=== PATIENT | male | born 1965 | race Caucasian/White ===

== ENCOUNTER 2021-04-20 16:23 | Inpatient (IN) | payer OTHER ==
[2021-04-20] MEDS ORDERED: SODIUM CHLORIDE 0.9% 1,000 ML IV STA (16:48)
[2021-04-20 17:03] LABS: Basophils # (A) 0.1 k/uL (0-0.2); Basophils % (A) 1 %; Eosinophils # (A) 0.3 k/uL (0-0.7); Eosinophils % (A) 2 %; HCT 49.5 % (39.0-53.0); HGB 16.5 gm/dL (13.0-17.5); Lymphocytes # (A) 3.6 k/uL (1.0-4.8); Lymphocytes % (A) 33 %; MCH 31.5 pg (25.0-35.0); MCHC 33.3 g/dL (31.0-37.0); MCV 94.5 fL (80.0-100.0); Mean Platelet Volume 7.6; Monocytes # (A) 0.7 k/uL (0-1.0); Monocytes % (A) 7 %; Neutrophils # (A) 6.1 k/uL (1.3-7.7); Neutrophils % (A) 55 %; Platelet Count 297 k/uL (150-450); RBC 5.24 m/uL (4.30-5.90); RDW 13.2 % (11.5-15.5); WBC 10.9 k/uL (3.8-10.6)
[2021-04-20 17:07] LABS: Appearance,Urine Clear (Clear); Bilirubin,Urine Negative (Negative); Blood,Urine Negative (Negative); Color,Urine Light Yellow; Glucose,Urine (UA) Negative (Negative); Ketones,Urine Negative (Negative); Leukocyte Esterase,Urine Negative (Negative); Nitrite,Urine Negative (Negative); PH, Urine 6.5 (5.0-8.0); Protein,Urine Negative (Negative); Specific Gravity,Urine 1.003 (1.001-1.035); Urobilinogen,Urine <2.0 mg/dL (<2.0)
[2021-04-20 17:11] LABS: INR 0.9 (<1.2); Partial Thromboplastin Time 24.1 sec (22.0-30.0); Prothrombin Time 9.7 sec (9.0-12.0)
[2021-04-20 17:14] LABS: AST 31 U/L (17-59); African American GFR (CKD) >90 (>60 ml/min/1.73 sqM); Albumin 4.6 g/dL (3.5-5.0); Alkaline Phosphatase 62 U/L (38-126); Amylase 69 U/L (30-110); Anion Gap 11 mmol/L; Blood Urea Nitrogen 15 mg/dL (9-20); Calcium 9.7 mg/dL (8.4-10.2); Carbon Dioxide 28 mmol/L (22-30); Chloride 101 mmol/L (98-107); Glucose 105 mg/dL (74-99); Lipase 55 U/L (23-300); Non-African American GFR(CKD) >90 (>60 ml/min/1.73 sqM); Potassium 3.8 mmol/L (3.5-5.1); Sodium 140 mmol/L (137-145); Total Bilirubin 0.4 mg/dL (0.2-1.3); Total Protein 7.3 g/dL (6.3-8.2)
[2021-04-20 17:15] LABS: ALT 38 U/L (4-49); Magnesium 2.1 mg/dL (1.6-2.3)
--- NOTE | 2021-04-20 17:23 | XR ---
EXAMINATION TYPE: XR chest 2V DATE OF EXAM: 04/20/2021 COMPARISON: 11/18/2020 HISTORY: Chest pain TECHNIQUE: 2 views FINDINGS: Heart and mediastinum are normal. Lungs are clear. Diaphragm is normal. There are emphysema tous changes in the right upper lobe. There are chest leads. Bony thorax is intact. IMPRESSION: Bullous pulmonary emphysema. No acute lung disease. No adverse change compared to old exa m.
[2021-04-20] MEDS ORDERED: HEPARIN SODIUM 1,000 UN/ML (10ML VL) IV ONE (17:42)
--- NOTE | 2021-04-20 17:58 | ED ---
General Adult HPI - General Chief complaint: Recheck/Abnormal Lab/Rx Stated complaint: abnormal EKG Time Seen by Provider: 04/20/21 16:36 Source: patient, RN notes reviewed Mode of arrival: ambulatory Limitations: no limitations - History of Present Illness Initial comments: Patient is a 55-year-old male that presents to emergency department complaining of chest pain on Sunday with radiation to his left arm. He presents today for evaluation and cardiac workup. Patient is an inmate at the local facility. He noted that he was feeling fine all sitting up in bed. He denied any cardiac history such as CHF, heart attack, stroke. He denied any family history of cardiac issues. He was a well-appearing well-hydrated 55-year-old male in no apparent distress or pain. He noted that he has not had a evaluation done. He denied any chest pain shortness of breath headache nausea vomiting diarrhea constipation fever fatigue chills. - Related Data Home Medications Medication Instructions Recorded Confirmed Albuterol Inhaler [Ventolin Hfa 2 puff INHALATION RT-QID PRN 04/20/21 04/20/21 Inhaler] Albuterol Nebulized [Ventolin 2.5 mg INHALATION RT-QID PRN 04/20/21 04/20/21 Nebulized] Atenolol [Tenormin] 50 mg PO DAILY 04/20/21 04/20/21 Ciclesonide [Alvesco] 1 puff INHALATION RT-BID 04/20/21 04/20/21 Loratadine 10 mg PO DAILY 04/20/21 04/20/21 Omeprazole [PriLOSEC] 20 mg PO DAILY 04/20/21 04/20/21 amLODIPine [Norvasc] 10 mg PO DAILY 04/20/21 04/20/21 hydroCHLOROthiazide [Hydrodiuril] 25 mg PO DAILY 04/20/21 04/20/21 Allergies Allergy/AdvReac Type Severity Reaction Status Date / Time No Known Allergies Allergy Verified 04/20/21 17:55 Review of Systems ROS Statement: Those systems with pertinent positive or pertinent negative responses have been documented in the HPI. ROS Other: All systems not noted in ROS Statement are negative. Past Medical History Past Medical History: COPD, Hypertension History of Any Multi-Drug Resistant Organisms: None Reported Past Surgical History: Hernia Repair Additional Past Surgical History / Comment(s): left foot, left thumb amputation Past Psychological History: Anxiety, Bipolar Smoking Status: Current some day smoker Past Alcohol Use History: Rare Past Drug Use History: None Reported General Exam Limitations: no limitations General appearance: alert, in no apparent distress Head exam: Present: atraumatic, normocephalic, normal inspection Eye exam: Present: normal appearance, PERRL, EOMI. Absent: scleral icterus, conjunctival injection, periorbital swelling Neck exam: Present: normal inspection Respiratory exam: Present: normal lung sounds bilaterally. Absent: respiratory distress, wheezes, rales, rhonchi, stridor Cardiovascular Exam: Present: regular rate, normal rhythm, normal heart sounds. Absent: systolic murmur, diastolic murmur, rubs, gallop, clicks GI/Abdominal exam: Present: soft, normal bowel sounds. Absent: distended, tenderness, guarding, rebound, rigid Extremities exam: Present: normal inspection, full ROM, normal capillary refill. Absent: tenderness, pedal edema, joint swelling, calf tenderness Neurological exam: Present: alert, oriented X3 Psychiatric exam: Present: normal affect, normal mood Skin exam: Present: warm, dry, intact, normal color. Absent: rash Course Vital Signs 04/20/21 16:26 Temperature 98.0 F Pulse Rate 102 H Respiratory 20 Rate Blood Pressure 149/99 O2 Sat by Pulse 98 Oximetry EKG Findings - EKG Comments: EKG Findings:: Ventricular rate 111 bpm, QRS duration 92 ms, QTC 484 ms, PRT axes */49/-88, atrial fibrillation with rapid ventricular response, septal infarct, age undetermined, abnormal ECG. Medical Decision Making - Medical Decision Making 55-year-old male presenting for cardiac evaluation after having chest pain with radiation of left arm on Sunday. Labs, chest x-ray, 1 L normal saline, EKG, machine rug cleaner ordered. EKG shows atrial fibrillation with rapid ventricular response, no previous EKG on record. Labs unremarkable. Chest x-ray negative for any acute change Case discussed with Dr. Neves, patient will be admitted inpatient for irregular EKG. Dr. Rodas was consulted and will accept the admit. Patient was started on a heparin drip and serial troponins were ordered. - Lab Data Result diagrams: 04/20/21 16:51 04/20/21 16:51 Lab Results 04/20/21 04/20/21 04/20/21 Range/Units 16:51 16:51 16:51 WBC 10.9 H (3.8-10.6) k/uL RBC 5.24 (4.30-5.90) m/uL Hgb 16.5 (13.0-17.5) gm/dL Hct 49.5 (39.0-53.0) % MCV 94.5 (80.0-100.0) fL MCH 31.5 (25.0-35.0) pg MCHC 33.3 (31.0-37.0) g/dL RDW 13.2 (11.5-15.5) % Plt Count 297 (150-450) k/uL MPV 7.6 Neutrophils % 55 % Lymphocytes % 33 % Monocytes % 7 % Eosinophils % 2 % Basophils % 1 % Neutrophils # 6.1 (1.3-7.7) k/uL Lymphocytes # 3.6 (1.0-4.8) k/uL Monocytes # 0.7 (0-1.0) k/uL Eosinophils # 0.3 (0-0.7) k/uL Basophils # 0.1 (0-0.2) k/uL PT 9.7 (9.0-12.0) sec INR 0.9 (<1.2) APTT 24.1 (22.0-30.0) sec Sodium 140 (137-145) mmol/L Potassium 3.8 (3.5-5.1) mmol/L Chloride 101 (98-107) mmol/L Carbon Dioxide 28 (22-30) mmol/L Anion Gap 11 mmol/L BUN 15 (9-20) mg/dL Creatinine 0.86 (0.66-1.25) mg/dL Est GFR (CKD-EPI)AfAm >90 (>60 ml/min/1.73 sqM) Est GFR (CKD-EPI)NonAf >90 (>60 ml/min/1.73 sqM) Glucose 105 H (74-99) mg/dL Calcium 9.7 (8.4-10.2) mg/dL Magnesium 2.1 (1.6-2.3) mg/dL Total Bilirubin 0.4 (0.2-1.3) mg/dL AST 31 (17-59) U/L ALT 38 (4-49) U/L Alkaline Phosphatase 62 (38-126) U/L Troponin I (0.000-0.034) ng/mL Total Protein 7.3 (6.3-8.2) g/dL Albumin 4.6 (3.5-5.0) g/dL Amylase 69 (30-110) U/L Lipase 55 (23-300) U/L Urine Color Urine Appearance (Clear) Urine pH (5.0-8.0) Ur Specific Crete (1.001-1.035) Urine Protein (Negative) Urine Glucose (UA) (Negative) Urine Ketones (Negative) Urine Blood (Negative) Urine Nitrite (Negative) Urine Bilirubin (Negative) Urine Urobilinogen (<2.0) mg/dL Ur Leukocyte Esterase (Negative) 04/20/21 04/20/21 Range/Units 16:51 16:51 WBC (3.8-10.6) k/uL RBC (4.30-5.90) m/uL Hgb (13.0-17.5) gm/dL Hct (39.0-53.0) % MCV (80.0-100.0) fL MCH (25.0-35.0) pg MCHC (31.0-37.0) g/dL RDW (11.5-15.5) % Plt Count (150-450) k/uL MPV Neutrophils % % Lymphocytes % % Monocytes % % Eosinophils % % Basophils % % Neutrophils # (1.3-7.7) k/uL Lymphocytes # (1.0-4.8) k/uL Monocytes # (0-1.0) k/uL Eosinophils # (0-0.7) k/uL Basophils # (0-0.2) k/uL PT (9.0-12.0) sec INR (<1.2) APTT (22.0-30.0) sec Sodium (137-145) mmol/L Potassium (3.5-5.1) mmol/L Chloride (98-107) mmol/L Carbon Dioxide (22-30) mmol/L Anion Gap mmol/L BUN (9-20) mg/dL Creatinine (0.66-1.25) mg/dL Est GFR (CKD-EPI)AfAm (>60 ml/min/1.73 sqM) Est GFR (CKD-EPI)NonAf (>60 ml/min/1.73 sqM) Glucose (74-99) mg/dL Calcium (8.4-10.2) mg/dL Magnesium (1.6-2.3) mg/dL Total Bilirubin (0.2-1.3) mg/dL AST (17-59) U/L ALT (4-49) U/L Alkaline Phosphatase (38-126) U/L Troponin I <0.012 (0.000-0.034) ng/mL Total Protein (6.3-8.2) g/dL Albumin (3.5-5.0) g/dL Amylase (30-110) U/L Lipase (23-300) U/L Urine Color Light Yellow Urine Appearance Clear (Clear) Urine pH 6.5 (5.0-8.0) Ur Specific Crete 1.003 (1.001-1.035) Urine Protein Negative (Negative) Urine Glucose (UA) Negative (Negative) Urine Ketones Negative (Negative) Urine Blood Negative (Negative) Urine Nitrite Negative (Negative) Urine Bilirubin Negative (Negative) Urine Urobilinogen <2.0 (<2.0) mg/dL Ur Leukocyte Esterase Negative (Negative) - EKG Data -: EKG Interpreted by Ms EKG Comments: Ventricular rate 111 bpm, QRS duration 92 ms, QTC 484 ms, PRT axes */49/-88, atrial fibrillation with rapid ventricular response, septal infarct, age undetermined, abnormal ECG. - Radiology Data Radiology results: report reviewed, image reviewed Chest x-ray: A bolus pulmonary emphysema. No acute lung disease. No adverse change compared to old exam. Disposition Clinical Impression: Atrial fibrillation, Chest pain Disposition: ADMITTED IP TO THIS HOSP Condition: Stable Is patient prescribed a controlled substance at d/c from ED?: No Referrals: Do Harrington MD [Primary Care Provider] - 1-2 days Time of Disposition: 18:04
[2021-04-20] MEDS: HEPARIN SOD,PORK IN 0.45% NACL 25,000 UNIT in 0.45% NACL 1 250ML.BAG IV SCH (18:04)
[2021-04-20] MEDS ORDERED: NITROGLYCERIN SL TABS 0.4 MG TAB SUBLINGUAL PRN (18:05)
[2021-04-20 19:41] LABS: Partial Thromboplastin Time 63.1 sec (22.0-30.0); Prothrombin Time 10.5 sec (9.0-12.0)
[2021-04-21] MEDS: HEPARIN SODIUM 1,000 UN/ML (10ML VL) IV PRN (01:34)
[2021-04-21 06:13] LABS: Partial Thromboplastin Time 69.8 sec (22.0-30.0); Prothrombin Time 10.4 sec (9.0-12.0)
[2021-04-21] MEDS ORDERED: CAFFEINE CITRATE 60 MG/3 ML VIAL IV PRN (08:01)
[2021-04-21] MEDS ORDERED: AMINOPHYLLINE 500 MG/20 ML VIAL IV PRN (08:01)
[2021-04-21] MEDS ORDERED: REGADENOSON 0.4 MG/5 ML SYRINGE IV PRN (08:01)
[2021-04-21] MEDS ORDERED: ASPIRIN 325 MG TAB PO SCH (09:00)
[2021-04-21 09:22] LABS: Basophils # (A) 0.09 X 10*3/uL (0.00-0.10); Basophils % (A) 0.8 %; Eosinophils # (A) 0.27 X 10*3/uL (0.04-0.35); Eosinophils % (A) 2.4 %; HCT 47.9 % (39.6-50.0); HGB 16.5 g/dL (13.0-17.0); Lymphocytes # (A) 3.88 X 10*3/uL (0.90-5.00); MCH 31.9 pg (27.0-32.0); MCHC 34.4 g/dL (32.0-37.0); MCV 92.5 fL (80.0-97.0); Mean Platelet Volume 10.8 fL (9.5-12.2); Monocytes # (A) 0.92 X 10*3/uL (0.20-1.00); Monocytes % (A) 8.3 %; Neutrophils # (A) 5.84 X 10*3/uL (1.80-7.70); Neutrophils % (A) 52.6 %; Platelet Count 255 X 10*3/uL (140-440); RBC 5.18 X 10*6/uL (4.40-5.60); RDW 12.8 % (11.5-14.5)
[2021-04-21] MEDS ORDERED: amLODIPine 10 MG TAB PO SCH (09:30)
[2021-04-21] MEDS ORDERED: atenoloL 50 MG TAB PO SCH (09:30)
--- NOTE | 2021-04-21 09:31 | P.CRDCN ---
History of Present Illness History of present illness: HISTORY OF PRESENTING ILLNESS This is a pleasant 55-year-old male past medical history significant for hypertension, dyslipidemia, gastroesophageal reflux disease, nonobstructive coronary artery disease per cath 2011 with a 30% lesion in the mid RCA, former nicotine dependency quit smoking March 04, former alcohol and marijuana use. He is currently incarcerated and therefore is no longer smoking cigarettes, marijuana or drinking alcohol. 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 We have been asked to see in consultation for chest pain. He states on Sunday he was sitting down on his bunk watching television when he had an acute onset of sharp pain in the left precordial region associated with shortness of breath and dizziness. He went and saw the nurse. His pain lasted for approximately 3 minutes and subsided on its own. [facility] Then yesterday during a routine blood draw to check his thyroid he was again evaluated by the nurse and was noted to have an irregular heartbeat. He went for an EKG and was sent to the hospital for further evaluation. EKG on arrival here showed atrial fibrillation heart rate of 111 with poor R-wave progression and nonspecific ST and T-wave abnormalities. Telemetry tracings reveal persistent atrial fibrillation with variable ventricular rates. Chest x-ray reveals pulmonary emphysema with no acute cardiopulmonary process. Laboratory data reviewed, WBC 10.9, hemoglobin 16.5, platelets 297, sodium 140, potassium 3.8, creatinine 0.86, magnesium 2.1 and cardiac enzymes negative 3. Current daily cardiac medications include atenolol 50 mg daily, hydrochlorothiazide 25 mg daily and amlodipine 10 mg daily. Most recent echocardiogram obtained in 2012 revealed preserved LV systolic function with ejection fraction 50%, trace aortic regurgitation noted, mild mitral regurgitation and mild tricuspid regurgitation. Cardiac catheterization report reviewed from [facility] from 2011 revealing left main angiographically normal, LAD mild luminal irregularities with no significant stenosis, ramus free of significant stenosis, circumflex free of significant stenosis and dominant RCA with a mid lesion of 30%. The patient is currently chest pain-free and has no symptoms of palpitations or dizziness. REVIEW OF SYSTEMS At the time of my exam: CONSTITUTIONAL: Denies fever or chills. CARDIOVASCULAR: Denies chest pain, shortness of breath, orthopnea, PND or palpi tations. RESPIRATORY: Denies cough. GASTROINTESTINAL: Denies abdominal pain, diarrhea, constipation, nausea or vomiting. MUSCULOSKELETAL: Denies myalgias. NEUROLOGIC: Denies numbness, tingling, headacbe or weakness. ENDOCRINE: Denies fatigue, weight change, polydipsia or polyurina. GENITOURINARY: Denies burning, hematuria or urgency with micturation. HEMATOLOGIC: Denies history of anemia or bleeding. PHYSICAL EXAMINATION Blood pressure 132/99 heart rate 74 afebrile and maintaining oxygen saturation on room air. CONSTITUTIONAL: No apparent distress. HEENT: Head is normocephalic. Pupils are equal, round. Sclerae anicteric. Mucous membranes of the mouth are moist. No JVD. No carotid bruit. CHEST EXAMINATION: Lungs are clear to auscultation. No chest wall tenderness is noted on palpation or with deep breathing. HEART EXAMINATION: Irregular rate and rhythm. S1, S2 heard. No murmurs, gallops or rub. ABDOMEN: Soft, nontender. Positive bowel sounds. EXTREMITIES: 2+ peripheral pulses, no lower extremity edema and no calf tenderness. NEUROLOGIC EXAMINATION: Patient is awake, alert and oriented x3. ASSESSMENT New onset paroxysmal atrial fibrillation with variable ventricular rates Chest pain Hypertension Dyslipidemia GERD COPD Chronic nicotine dependence PLAN An acute coronary event has been ruled out. Obtain 2D echocardiogram and doppler study to assess cardiac structure and f unction. Perform Lexiscan stress test to assess for reversible ischemia. Continue IV heparin for thromboembolic protection pending stress test findings. In the meantime we will ask the therapeutic case manager to check the cost of xarelto 20 mg daily. Resume atenolol, hydrochlorothiazide and amlodipine as previously ordered. Check thyroid function and lipid panel. CHADS-VASC score is 1. Consider DESIREE/cardioversion down the road if he remains in afib. Further recommendations to follow based on clinical course. Thank you kindly for this consultation. Nurse Practitioner note has been reviewed, I agree with a documented findings and plan of care. Patient was seen and examined. Past Medical History Past Medical History: COPD, Hypertension History of Any Multi-Drug Resistant Organisms: None Reported Past Surgical History: Hernia Repair Additional Past Surgical History / Comment(s): left foot, left thumb amputation Past Anesthesia/Blood Transfusion Reactions: No Reported Reaction Past Psychological History: Anxiety, Bipolar Smoking Status: Former smoker Past Alcohol Use History: Rare Past Drug Use History: None Reported Medications and Allergies Home Medications Medication Instructions Recorded Confirmed Type Albuterol Inhaler [Ventolin Hfa 2 puff INHALATION RT-QID PRN 04/20/21 04/20/21 History Inhaler] Albuterol Nebulized [Ventolin 2.5 mg INHALATION RT-QID PRN 04/20/21 04/20/21 History Nebulized] Atenolol [Tenormin] 50 mg PO DAILY 04/20/21 04/20/21 History Ciclesonide [Alvesco] 1 puff INHALATION RT-BID 04/20/21 04/20/21 History Loratadine 10 mg PO DAILY 04/20/21 04/20/21 History Omeprazole [PriLOSEC] 20 mg PO DAILY 04/20/21 04/20/21 History amLODIPine [Norvasc] 10 mg PO DAILY 04/20/21 04/20/21 History hydroCHLOROthiazide [Hydrodiuril] 25 mg PO DAILY 04/20/21 04/20/21 History Allergies Allergy/AdvReac Type Severity Reaction Status Date / Time No Known Allergies Allergy Verified 04/20/21 17:55 Physical Exam Vitals: Vital Signs Temp Pulse Pulse Resp BP BP Pulse Ox 04/21/21 02:00 98.2 F 65 18 134/92 97 04/20/21 19:37 98.3 F 84 18 142/109 98 04/20/21 18:09 98 18 138/107 99 04/20/21 16:26 98.0 F 102 H 20 149/99 98 Intake and Output 04/20/21 04/21/21 04/21/21 22:59 06:59 14:59 Intake Total 72.829 70.244 Balance 72.829 70.244 Intake: Intake, IV Titration 72.829 70.244 Amount Heparin Sod,Pork in 0.45% 72.829 70.244 NaCl 25,000 unit In 0.45 % NaCl 1 250ml.bag @ 12 UNITS/KG/HR 9.689 mls/hr IV .Q24H [facility] Rx#: [id number] Other: Voiding Method Toilet Toilet # Voids 1 3 Weight 80.739 kg Results 04/20/21 16:51 04/20/21 16:51 Cardiac Enzymes 04/20/21 04/20/21 04/20/21 Range/Units 16:51 16:51 19:07 AST 31 (17-59) U/L Troponin I <0.012 <0.012 (0.000-0.034) ng/mL 04/20/21 Range/Units 20:51 AST (17-59) U/L Troponin I <0.012 (0.000-0.034) ng/mL Coagulation 04/20/21 04/20/21 04/21/21 Range/Units 16:51 19:07 00:42 PT 9.7 10.5 (9.0-12.0) sec APTT 24.1 63.1 H 34.8 H (22.0-30.0) sec 04/21/21 Range/Units 05:03 PT 10.4 (9.0-12.0) sec APTT 69.8 H (22.0-30.0) sec CBC 04/20/21 Range/Units 16:51 WBC 10.9 H (3.8-10.6) k/uL RBC 5.24 (4.30-5.90) m/uL Hgb 16.5 (13.0-17.5) gm/dL Hct 49.5 (39.0-53.0) % Plt Count 297 (150-450) k/uL Comprehensive Metabolic Panel 04/20/21 Range/Units 16:51 Sodium 140 (137-145) mmol/L Potassium 3.8 (3.5-5.1) mmol/L Chloride 101 (98-107) mmol/L Carbon Dioxide 28 (22-30) mmol/L BUN 15 (9-20) mg/dL Creatinine 0.86 (0.66-1.25) mg/dL Glucose 105 H (74-99) mg/dL Calcium 9.7 (8.4-10.2) mg/dL AST 31 (17-59) U/L ALT 38 (4-49) U/L Alkaline Phosphatase 62 (38-126) U/L Total Protein 7.3 (6.3-8.2) g/dL Albumin 4.6 (3.5-5.0) g/dL Current Medications Generic Name Dose Route Start Last Admin Trade Name Freq PRN Reason Stop Dose Admin Aspirin 325 mg 04/21/21 09:00 Aspirin 325 Mg Tab PO DAILY RAMAKRISHNA Heparin Sodium (Porcine) 0 unit 04/20/21 17:42 04/21/21 01:34 Heparin Sodium 1,000 Un/Ml (10ml Vl) IV 4,000 unit PER PROTOCOL PRN Administration Low PTT Protocol Heparin Sodium/Sodium Chloride 250 mls @ 9.689 mls/hr 04/20/21 17:45 04/21/21 07:23 25,000 unit/ Sodium Chloride IV 13 units/kg/hr .Q24H RAMAKRISHNA 10.496 mls/hr Titration Protocol 12 UNITS/KG/HR Nitroglycerin 0.4 mg 04/20/21 18:05 Nitroglycerin Sl Tabs 0.4 Mg Tab SUBLINGUAL Q5M PRN Chest Pain Intake and Output 04/20/21 04/21/21 04/21/21 22:59 06:59 14:59 Intake Total 72.829 70.244 Balance 72.829 70.244 Intake: Intake, IV Titration 72.829 70.244 Amount Heparin Sod,Pork in 0.45% 72.829 70.244 NaCl 25,000 unit In 0.45 % NaCl 1 250ml.bag @ 12 UNITS/KG/HR 9.689 mls/hr IV .Q24H [facility] Rx#: [id number] Other: Voiding Method Toilet Toilet # Voids 1 3 Weight 80.739 kg 04/20/21 16:51 04/20/21 16:51
[2021-04-21 11:39] LABS: LDL Cholesterol,Calculated 89.2 mg/dL (0.0-131.0); VLDL Calculation 16.8 mg/dL (5.00-40.00)
--- NOTE | 2021-04-21 11:49 | ECHOS ---
STRESS ECHOCARDIOGRAM INDICATION: Chest pain and new onset atrial fibrillation. CLINICAL INFORMATION: Baseline EKG shows atrial fibrillation, poor R-wave progression. Nonspecific ST-T wave changes. The patient was given intravenous Lexiscan as per protocol did not have chest pain or diagnostic ST-segment depression. CONCLUSIONS: 1. Negative stress test by EKG criteria study, inconclusive EKG part of the stress test due to baseline EKG abnormalities. 2. Cardiolite portion of the stress test will be reported separately. MMODL / IJN: [id number] /
--- NOTE | 2021-04-21 12:00 | ECHOF ---
Referral Reason:afib MEASUREMENTS -------- HEIGHT: 180.3 cm WEIGHT: 80.7 kg BP: 132/99 RVIDd: 3.3 cm (< 3.3) IVSd: 1.6 cm (0.6 - 1.1) LVIDd: 4.5 cm (3.9 - 5.3) LVPWd: 1.7 cm (0.6 - 1.1) IVSs: 1.8 cm LVIDs: 3.5 cm LVPWs: 2.0 cm LA Diam: 3.8 cm (2.7 - 3.8) LAESV Index (A-L): 30.40 ml/m Ao Diam: 3.7 cm (2.0 - 3.7) AV Cusp: 2.6 cm (1.5 - 2.6) MV EXCURSION: 21.171 mm (> 18.000) MV EF SLOPE: 103 mm/s (70 - 150) EPSS: 0.7 cm RAP: 5.00 mmHg RVSP: 19.00 mmHg FINDINGS -------- Atrial fibrillation. This was a technically good study. The left ventricular size is normal. There is moderate concentric left ventricular hypertrophy. O verall left ventricular systolic function is moderately impaired with, an EF between 35 - 40 %. The right ventricle is mildly enlarged. LA is midly dilated 29-33ml/m2. The right atrium is normal in size. Interatrial and interventricular septum intact. The aortic valve is trileaflet, and appears structurally normal. No aortic stenosis or regurgitation. There is trace to mild mitral regurgitation. The tricuspid valve appears structurally normal. Mild tricuspid regurgitation present. Trace/mild (physiologic) pulmonic regurgitation. The aortic root size is normal. Normal inferior vena cava with normal inspiratory collapse consistent with estimated right atrial pre ssure of 5 mmHg. There is no pericardial effusion. CONCLUSIONS -------- 1. The left ventricular size is normal. 2. There is moderate concentric left ventricular hypertrophy. 3. Overall left ventricular systolic function is moderately impaired with, an EF between 35 - 40 %. 4. The right ventricle is mildly enlarged. 5. LA is midly dilated 29-33ml/m2. 6. The aortic valve is trileaflet, and appears structurally normal. No aortic stenosis or regurgitati on. 7. There is trace to mild mitral regurgitation. 8. The tricuspid valve appears structurally normal. 9. Trace/mild (physiologic) pulmonic regurgitation. 10. There is no pericardial effusion. MANAGER [employer]: Dang Rios RDCS
[2021-04-21] MEDS: hydroCHLOROthiazide 25 MG TAB PO SCH (12:25)
--- NOTE | 2021-04-21 13:03 | NM ---
EXAMINATION TYPE: NM stress lexiscan cardiolite DATE OF EXAM: 04/21/2021 COMPARISON: NONE HISTORY: Chest pain with new-onset atrial fibrillation TECHNIQUE: After the intravenous administration of 10.1 mCi Tc 99m Sestamibi - Cardiolite resting SP ECT images acquired 50 minutes post injection. The patient received 0.4mg Lexiscan, 25.8 mCi Tc 99m Sestamibi - Stress images obtained [address] injection FINDINGS: Review of stress and rest SPECT images demonstrates mild decreased uptake along the inferior apical l eft ventricle on stress as compared to rest imaging. Gated analysis shows normal wall motion with an estimated left ventricular ejection fraction of 43 %. 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 Abnormal low left ventricular ejection fraction, consider echocardiographic correlation
[2021-04-21] MEDS ORDERED: ALPRAZolam 0.5 MG TAB PO PRN (13:20)
[2021-04-21] MEDS ORDERED: ALPRAZolam 0.25 MG TAB PO PRN (13:20)
[2021-04-21] MEDS ORDERED: SODIUM CHLORIDE 0.9% 1,000 ML in EMPTY BAG 1 BAG IV ONE (13:20)
[2021-04-21] MEDS: METOPROLOL TARTRATE 25 MG TAB PO SCH ×2 (13:51→19:39)
[2021-04-21] MEDS: lisinopriL 5 MG TAB PO SCH (14:57)
--- NOTE | 2021-04-21 15:22 | P.HPIM ---
History of Present Illness Patient is a 55-year-old male came in after the nurse at the correctional facility noted that patient's heart rate is stable and was sent in here. Patient had a chest pain about a couple days ago which was sharp left precordial associated shortness of breath and dizziness. Patient is found to be in atrial fibrillation ER patient was subsequently admitted patient was started on anticoagulation which was subsequently switched to oral anticoagulation and patient was started on beta praveen. Chest x-ray showed emphysema. Patient's troponins were negative EKG showed atrial fibrillation with poor R-wave progression. Patient heart rate is presently controlled patient is on atenolol at home which was restarted back and patient does have history of hypertension used to smoke until he ended up in the present. Patient had a cardiac catheterization in 2011 which showed 30% lesion in RCA. Patient subsequently underwent stress test which showed evidence for inducible ischemia. Patient most probably will undergo cardiac catheterization echocardiogram was done as well which showed decreased EF of around 35-40%. Patient is presently not in heart failure exacerbation REVIEW OF SYSTEMS: CONSTITUTIONAL: No fever, no malaise, no fatigue. HEENT: No recent visual problems or hearing problems. Denied any sore throat. CARDIOVASCULAR: No orthopnea, PND, no palpitations, no syncope. PULMONARY: No shortness of breath, no cough, no hemoptysis. GASTROINTESTINAL: No diarrhea, no nausea, no vomiting, no abdominal pain. NEUROLOGICAL: No headaches, no weakness, no numbness. HEMATOLOGICAL: Denies any bleeding or petechiae. GENITOURINARY: Denies any burning micturition, frequency, or urgency. MUSCULOSKELETAL/RHEUMATOLOGICAL: Denies any joint pain, swelling, or any muscle pain. ENDOCRINE: Denies any polyuria or polydipsia. The rest of the 14-point review of systems is negative. PHYSICAL EXAMINATION: GENERAL: The patient is alert and oriented x3, not in any acute distress. Well developed, well nourished. HEENT: Pupils are round and equally reacting to light. EOMI. No scleral icterus. No conjunctival pallor. Normocephalic, atraumatic. No pharyngeal erythema. No thyromegaly. CARDIOVASCULAR: S1 and S2 present. No murmurs, rubs, or gallops. PULMONARY: Chest is clear to auscultation, no wheezing or crackles. ABDOMEN: Soft, nontender, nondistended, normoactive bowel sounds. No palpable organomegaly. MUSCULOSKELETAL: No joint swelling or deformity. EXTREMITIES: No cyanosis, clubbing, or pedal edema. NEUROLOGICAL: Gross neurological examination did not reveal any focal deficits. SKIN: No rashes. Assessment and plan -New-onset atrial fibrillation patient has proximal A. fib patient is presently rate controlled patient is on anticoagulation at this time -Chest pain secondary to unstable angina patient has a positive stress test, patient probably will undergo cardiac catheterization -Leukocytosis reactive in nature -Congestive heart failure acute systolic dysfunction without any acute pulmonary edema acute exacerbation of CHF -Nicotine use: Counseling was provided -Emphysema possibly of COPD without any acute exacerbation DVT prophylaxis: he is on anti-correlation with IV heparin at this time. Past Medical History Past Medical History: COPD, Hypertension History of Any Multi-Drug Resistant Organisms: None Reported Past Surgical History: Hernia Repair Additional Past Surgical History / Comment(s): left foot, left thumb amputation Past Anesthesia/Blood Transfusion Reactions: No Reported Reaction Past Psychological History: Anxiety, Bipolar Smoking Status: Former smoker Past Alcohol Use History: Rare Past Drug Use History: None Reported Medications and Allergies Home Medications Medication Instructions Recorded Confirmed Type Albuterol Inhaler [Ventolin Hfa 2 puff INHALATION RT-QID PRN 04/20/21 04/20/21 History Inhaler] Albuterol Nebulized [Ventolin 2.5 mg INHALATION RT-QID PRN 04/20/21 04/20/21 History Nebulized] Atenolol [Tenormin] 50 mg PO DAILY 04/20/21 04/20/21 History Ciclesonide [Alvesco] 1 puff INHALATION RT-BID 04/20/21 04/20/21 History Loratadine 10 mg PO DAILY 04/20/21 04/20/21 History Omeprazole [PriLOSEC] 20 mg PO DAILY 04/20/21 04/20/21 History amLODIPine [Norvasc] 10 mg PO DAILY 04/20/21 04/20/21 History hydroCHLOROthiazide [Hydrodiuril] 25 mg PO DAILY 04/20/21 04/20/21 History Rivaroxaban [Xarelto] 20 mg PO DAILY #30 tab 04/21/21 Rx Allergies Allergy/AdvReac Type Severity Reaction Status Date / Time No Known Allergies Allergy Verified 04/20/21 17:55 Physical Exam Vitals: Vital Signs Temp Pulse Pulse Resp BP BP Pulse Ox 04/21/21 15:00 97.8 F 68 16 125/93 97 04/21/21 07:00 98.3 F 74 18 132/99 95 04/21/21 02:00 98.2 F 65 18 134/92 97 04/20/21 19:37 98.3 F 84 18 142/109 98 04/20/21 18:09 98 18 138/107 99 04/20/21 16:26 98.0 F 102 H 20 149/99 98 Intake and Output 04/21/21 04/21/21 04/21/21 06:59 14:59 22:59 Intake Total 72.829 70.244 Balance 72.829 70.244 Intake: Intake, IV Titration 72.829 70.244 Amount Heparin Sod,Pork in 0.45% 72.829 70.244 NaCl 25,000 unit In 0.45 % NaCl 1 250ml.bag @ 12 UNITS/KG/HR 9.689 mls/hr IV .Q24H [facility] Rx#: [id number] Other: Voiding Method Toilet Toilet # Voids 3 1 Weight 80.74 kg Results CBC & Chem 7: 04/21/21 05:03 04/20/21 16:51 Labs: Abnormal Lab Results - Last 24 Hours (Table) 04/20/21 04/20/21 04/20/21 Range/Units 16:51 16:51 19:07 WBC 10.9 H (3.8-10.6) k/uL Immature Gran # (0.00-0.04) X 10*3/uL APTT 63.1 H (22.0-30.0) sec Glucose 105 H (74-99) mg/dL 04/21/21 04/21/21 04/21/21 Range/Units 00:42 05:03 05:03 WBC 11.10 H (3.8-10.6) k/uL Immature Gran # 0.10 H (0.00-0.04) X 10*3/uL APTT 34.8 H 69.8 H (22.0-30.0) sec Glucose (74-99) mg/dL Thrombosis Risk Factor Assmnt - Choose All That Apply Each Factor Represents 1 point: Abnormal pulmonary function (COPD), Age 41-60 years Thrombosis Risk Factor Assessment Total Risk Factor Score: 2 Thrombosis Risk Factor Assessment Level: Low Risk
[2021-04-21] MEDS: HEPARIN SOD,PORK IN 0.45% NACL 25,000 UNIT in 0.45% NACL 1 250ML.BAG IV SCH (17:25)
[2021-04-22] MEDS: HEPARIN SODIUM 1,000 UN/ML (10ML VL) IV PRN (00:20)
[2021-04-22] MEDS: HEPARIN SOD,PORK IN 0.45% NACL 25,000 UNIT in 0.45% NACL 1 250ML.BAG IV SCH (05:02)
[2021-04-22] MEDS: hydroCHLOROthiazide 25 MG TAB PO SCH (05:09)
[2021-04-22] MEDS: lisinopriL 5 MG TAB PO SCH (05:45)
[2021-04-22] MEDS: METOPROLOL TARTRATE 25 MG TAB PO SCH (05:46)
[2021-04-22] MEDS ORDERED: ASPIRIN 325 MG TAB PO ONE (06:00)
[2021-04-22] MEDS ORDERED: ATORVASTATIN 80 MG TAB PO ONE (06:00)
[2021-04-22] MEDS ORDERED: HEPARIN SODIUM,PORCINE 10,000 UNIT in SODIUM CHLORIDE 0.9% 1,000 ML IRRIGATION PRN (07:00)
[2021-04-22] MEDS ORDERED: HEPARIN SODIUM,PORCINE 2,500 UNIT in SODIUM CHLORIDE 0.9% 250 ML IRRIGATION PRN (07:00)
[2021-04-22 08:23] VITALS: PULSE 79
[2021-04-22] MEDS ORDERED: IV FLUID CONTINUATION 1,000 ML IV ONE (10:00)
[2021-04-22] MEDS ORDERED: LIDOCAINE 1% INJ 10MG/ML (20 ML MDV) SQ ONE (10:13)
[2021-04-22] MEDS ORDERED: MIDAZOLAM 2 MG/2 ML VIAL IV ONE (10:13)
[2021-04-22] MEDS ORDERED: fentaNYL (PF) 50 MCG/ML 2 ML AMP IV ONE (10:13)
[2021-04-22] MEDS ORDERED: IOPAMIDOL-370 125ML BTL INJ ONE (10:25)
[2021-04-22] MEDS ORDERED: RX INFO: IV CONTRAST WAS GIVEN 1 EACH MISC MISCELLANE PRN (10:38)
[2021-04-22] MEDS ORDERED: SODIUM CHLORIDE 0.9% 1,000 ML IV SCH (10:45)
--- NOTE | 2021-04-22 11:17 | CC ---
CARDIAC CATHETERIZATION REPORT INDICATION: Chest pain with abnormal stress test showing ischemia involving the inferoapical wall. PROCEDURE NOTE: After obtaining informed consent, left heart catheterization and coronary angiogram were performed via the right femoral artery using standard Manuel catheters. The patient tolerated the procedure well without any obvious immediate complications. A femoral angiogram was performed and Angio-Seal will be deployed for hemostasis. The patient received moderate conscious sedation. Total sedation time was 19 minutes. FINDINGS: HEMODYNAMICS: Left ventricular end-diastolic pressure is 20 mm. There is no significant gradient across the aortic valve. LEFT VENTRICULOGRAM: Not performed. ANGIOGRAPHIC DATA: LEFT MAIN CORONARY ARTERY: Left main coronary artery is a normal-sized vessel, divides into left anterior descending coronary artery and circumflex coronary artery. There is an atherosclerotic plaque in the proximal LAD that extends into the left main coronary artery, but there is no focal stenotic lesion. CIRCUMFLEX CORONARY ARTERY: Circumflex coronary artery and its branches are free of significant stenosis. LEFT ANTERIOR DESCENDING CORONARY ARTERY: Other than the atherosclerotic plaque which is probably healed ulcerated plaque in the proximal LAD. Rest of the LAD is free of significant disease. RIGHT CORONARY ARTERY: Right coronary artery is a dominant vessel. There is an ectatic and aneurysmal area in the midportion without focal stenotic lesions that require angioplasty. CONCLUSIONS: 1. Moderate atherosclerotic plaque in the proximal LAD extending into the distal left main without any evidence of luminal narrowing. 2. 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 PLAN: Patient will be treated with optimal medical therapy with aspirin, beta blockers, TRUNG inhibitors, sublingual nitroglycerine on a p.r.n. basis and a statin. I am going to start him on Lipitor 40 mg daily. The patient is also in atrial fibrillation and will be started on Xarelto and after 3 weeks of anticoagulation, will undergo DESIREE cardioversion. Patient needs aggressive risk factor modification including low- cholesterol diet, exercise and smoking cessation. MMODL / IJN: [id number] /
--- NOTE | 2021-04-22 13:43 | P.DS ---
Providers Date of admission: 04/21/21 14:34 Attending physician: Nori Rodas Consults: 04/20/21 18:05 Consult Physician Urgent Consulting Provider: Endy Pratt Consult Reason/Comments: chest pain, atrial fibrillation Do you want consulting provider notified?: Yes Primary care physician: Len Oconnor [place] [facility] Course: Patient is a 55-year-old male came in after the nurse at the correctional [facility] noted that patient's heart rate is stable and was sent in here. Patient had a chest pain about a couple days ago which was sharp left precordial associated shortness of breath and dizziness. Patient is found to be in atrial fibrillation ER patient was subsequently admitted patient was started on anticoagulation which was subsequently switched to oral anticoagulation and patient was started on beta praveen. Chest x-ray showed emphysema. Patient's troponins were negative EKG showed atrial fibrillation with poor R-wave progression. Patient heart rate is presently controlled patient is on atenolol at home which was restarted back and patient does have history of hypertension used to smoke until he ended up in the present. Patient had a cardiac catheterization in 2011 which showed 30% lesion in RCA. Patient subsequently underwent stress test which showed evidence for inducible ischemia. Patient most probably will undergo cardiac catheterization echocardiogram was done as well which showed decreased EF of around 35-40%. Patient is presently not in heart failure exacerbation 04/22/2021 Patient had a cardiac catheterization today which did not show any significant coronary occlusive disease. Patient is cleared for discharge today patient will be discharged today. Patient will be continued on Xarelto for about 4 weeks after which patient will undergo cardioversion patient remains in A. fib but rate controlled at this time. Patient had elevated TSH but normal T4 TSH need to be repeated in about 4 weeks patient may have sick euthyroid syndrome. Patient's decreased ejection fraction is believed to be secondary to chronic A. fib. Patient doesn't have any significant coronary artery disease. PHYSICAL EXAMINATION: GENERAL: The patient is alert and oriented x3, not in any acute distress. Well developed, well nourished. HEENT: Pupils are round and equally reacting to light. EOMI. No scleral icterus. No conjunctival pallor. Normocephalic, atraumatic. No pharyngeal erythema. No thyromegaly. CARDIOVASCULAR: S1 and S2 present. No murmurs, rubs, or gallops. Irregularly irregular rhythm PULMONARY: Chest is clear to auscultation, no wheezing or crackles. ABDOMEN: Soft, nontender, nondistended, normoactive bowel sounds. No palpable organomegaly. MUSCULOSKELETAL: No joint swelling or deformity. EXTREMITIES: No cyanosis, clubbing, or pedal edema. NEUROLOGICAL: Gross neurological examination did not reveal any focal deficits. SKIN: No rashes. Assessment and plan -New-onset atrial fibrillation, unknown whether patient has persistent or chronic A. fib. patient is presently rate controlled patient is on anticoagulation at this time -Chest pain probably secondary to atrial fibrillation no evidence of significant coronary artery disease that can explain this symptom -Leukocytosis reactive in nature -Congestive heart failure possible chronic systolic dysfunction without any acute exacerbation chronic systolic dysfunction secondary to atrial fibrillation -Nicotine use: Counseling was provided -Emphysema possibly of COPD without any acute exacerbation Patient Condition at Discharge: Stable Plan - Discharge Summary Discharge Rx Participant: No New Discharge Prescriptions: New Rivaroxaban [Xarelto] 20 mg PO DAILY #30 tab Continue amLODIPine [Norvasc] 10 mg PO DAILY Albuterol Inhaler [Ventolin Hfa Inhaler] 2 puff INHALATION RT-QID PRN PRN Reason: Shortness Of Breath hydroCHLOROthiazide [Hydrodiuril] 25 mg PO DAILY Loratadine 10 mg PO DAILY Omeprazole [PriLOSEC] 20 mg PO DAILY Atenolol [Tenormin] 50 mg PO DAILY Albuterol Nebulized [Ventolin Nebulized] 2.5 mg INHALATION RT-QID PRN PRN Reason: Shortness Of Breath Ciclesonide [Alvesco] 1 puff INHALATION RT-BID Discharge Medication List Albuterol Inhaler [Ventolin Hfa Inhaler] 2 puff INHALATION RT-QID PRN 04/20/21 [History] Albuterol Nebulized [Ventolin Nebulized] 2.5 mg INHALATION RT-QID PRN 04/20/21 [History] Atenolol [Tenormin] 50 mg PO DAILY 04/20/21 [History] Ciclesonide [Alvesco] 1 puff INHALATION RT-BID 04/20/21 [History] Loratadine 10 mg PO DAILY 04/20/21 [History] Omeprazole [PriLOSEC] 20 mg PO DAILY 04/20/21 [History] amLODIPine [Norvasc] 10 mg PO DAILY 04/20/21 [History] hydroCHLOROthiazide [Hydrodiuril] 25 mg PO DAILY 04/20/21 [History] Rivaroxaban [Xarelto] 20 mg PO DAILY #30 tab 04/21/21 [Rx] Follow up Appointment(s)/Referral(s): Do Harrington MD [Primary Care Provider] - 3 Days Willie Garcia MD [STAFF PHYSICIAN] - 2 Weeks Patient Instructions/Handouts: Chest Pain (DC)
[2021-04-22 14:53] VITALS: BP 120/80
[2021-04-22 15:52] VITALS: RESP 15; TEMP 98.4
[2021-04-22] MEDS ORDERED: ATORVASTATIN 40 MG TAB PO SCH (21:00)
== END 2021-04-22 16:35 | DRG 287 ==
LOC: EC 16:23 → 6NMEDSUR 17:42 → OBSVTOIN 04-21 14:34
PROVIDERS: ADMIT Internal Medicine; ATTEND Internal Medicine
PROC: B2111ZZ Fluoroscopy of Multiple Coronary Arteries using Low Osmolar Contrast (ICD-10-PCS; 2021-04-22)
PROC: 4A023N7 Measurement of Cardiac Sampling and Pressure, Left Heart, Percutaneous Approach (ICD-10-PCS; principal; 2021-04-22 10:00)
DX: I48.91 Unspecified atrial fibrillation (principal); I25.110 Atherosclerotic heart disease of native coronary artery with unstable angina pectoris; I50.22 Chronic systolic (congestive) heart failure; I11.0 Hypertensive heart disease with heart failure; D72.829 Elevated white blood cell count, unspecified; F31.9 Bipolar disorder, unspecified; J43.9 Emphysema, unspecified; I08.1 Rheumatic disorders of both mitral and tricuspid valves; E78.5 Hyperlipidemia, unspecified; K21.9 Gastro-esophageal reflux disease without esophagitis; R94.6 Abnormal results of thyroid function studies; Z79.899 Other long term (current) drug therapy; Z89.012 Acquired absence of left thumb; Z87.891 Personal history of nicotine dependence; Z87.19 Personal history of other diseases of the digestive system; Z98.890 Other specified postprocedural states
CPT/HCPCS: 36415; 71046; 78452; 80053; 80061; 81003; 82150; 83690; 83735; 84439; 84443; 84484; 85025; 85610; 85730; 93005; 93017; 93306; 93458; 96361; 96374; 99285

== ENCOUNTER 2021-04-23 10:58 | Inpatient (IN) | payer OTHER ==
[2021-04-23 11:32] LABS: Basophils # (A) 0.1 k/uL (0-0.2); Basophils % (A) 1 %; Eosinophils # (A) 0.2 k/uL (0-0.7); Eosinophils % (A) 2 %; HCT 48.8 % (39.0-53.0); HGB 16.8 gm/dL (13.0-17.5); Lymphocytes # (A) 2.4 k/uL (1.0-4.8); Lymphocytes % (A) 23 %; MCH 31.9 pg (25.0-35.0); MCHC 34.4 g/dL (31.0-37.0); MCV 92.9 fL (80.0-100.0); Mean Platelet Volume 8.2; Monocytes # (A) 0.7 k/uL (0-1.0); Monocytes % (A) 7 %; Neutrophils # (A) 6.6 k/uL (1.3-7.7); Neutrophils % (A) 65 %; Platelet Count 269 k/uL (150-450); RBC 5.26 m/uL (4.30-5.90); RDW 12.7 % (11.5-15.5); WBC 10.1 k/uL (3.8-10.6)
[2021-04-23 11:46] LABS: ALT 27 U/L (4-49); AST 24 U/L (17-59); African American GFR (CKD) >90 (>60 ml/min/1.73 sqM); Albumin 4.3 g/dL (3.5-5.0); Alkaline Phosphatase 58 U/L (38-126); Anion Gap 7 mmol/L; Blood Urea Nitrogen 20 mg/dL (9-20); Calcium 9.4 mg/dL (8.4-10.2); Carbon Dioxide 25 mmol/L (22-30); Chloride 107 mmol/L (98-107); Creatine Kinase 112 U/L (55-170); Glucose 95 mg/dL (74-99); Magnesium 2.2 mg/dL (1.6-2.3); Non-African American GFR(CKD) >90 (>60 ml/min/1.73 sqM); Potassium 4.4 mmol/L (3.5-5.1); Sodium 139 mmol/L (137-145); Total Bilirubin 0.4 mg/dL (0.2-1.3); Total Protein 6.9 g/dL (6.3-8.2)
[2021-04-23 12:09] LABS: Partial Thromboplastin Time 24.7 sec (22.0-30.0); Prothrombin Time 10.6 sec (9.0-12.0)
[2021-04-23] MEDS ORDERED: DILTIAZEM DRIP BOLUS FROM BAG 1 MG SOLN IV ONE (12:22)
--- NOTE | 2021-04-23 12:24 | ED ---
Arrhythmia/Palpitations HPI - General Chief Complaint: Arrhythmia/Palpitations Stated Complaint: abn EKG Time Seen by Provider: 04/23/21 11:00 Source: patient, police, RN notes reviewed, old records reviewed Mode of arrival: ambulatory Limitations: no limitations - History of Present Illness Initial Comments: This is a 55-year-old male who had the onset 3 days ago of chest pain and palpitations was found have A. fib who is back today with complaints of palpitations or racing heart. He also has some shortness of breath and denies any chest pain at this time no fevers chills nausea vomiting sweats. MD Complaint: "heart racing", palpitations - Related Data Home Medications Medication Instructions Recorded Confirmed Albuterol Inhaler [Ventolin Hfa 2 puff INHALATION RT-QID PRN 04/20/21 04/20/21 Inhaler] Albuterol Nebulized [Ventolin 2.5 mg INHALATION RT-QID PRN 04/20/21 04/20/21 Nebulized] Atenolol [Tenormin] 50 mg PO DAILY 04/20/21 04/20/21 Ciclesonide [Alvesco] 1 puff INHALATION RT-BID 04/20/21 04/20/21 Loratadine 10 mg PO DAILY 04/20/21 04/20/21 Omeprazole [PriLOSEC] 20 mg PO DAILY 04/20/21 04/20/21 amLODIPine [Norvasc] 10 mg PO DAILY 04/20/21 04/20/21 hydroCHLOROthiazide [Hydrodiuril] 25 mg PO DAILY 04/20/21 04/20/21 Previous Rx's Medication Instructions Recorded Rivaroxaban [Xarelto] 20 mg PO DAILY #30 tab 04/21/21 Allergies Allergy/AdvReac Type Severity Reaction Status Date / Time No Known Allergies Allergy Verified 04/20/21 17:55 Review of Systems ROS Statement: Those systems with pertinent positive or pertinent negative responses have been documented in the HPI. ROS Other: All systems not noted in ROS Statement are negative. Past Medical History Past Medical History: Atrial Fibrillation, COPD, Hypertension History of Any Multi-Drug Resistant Organisms: None Reported Past Surgical History: Hernia Repair Additional Past Surgical History / Comment(s): left foot, left thumb amputation Past Anesthesia/Blood Transfusion Reactions: No Reported Reaction Past Psychological History: Anxiety, Bipolar Smoking Status: Former smoker Past Alcohol Use History: Rare Past Drug Use History: None Reported General Exam - General Exam Comments Initial Comments: Is a well-developed asthenic appearing male who is awake alert oriented 3 Limitations: no limitations General appearance: alert, in no apparent distress Head exam: Present: atraumatic, normocephalic, normal inspection Eye exam: Present: normal appearance, PERRL, EOMI. Absent: scleral icterus, conjunctival injection, periorbital swelling ENT exam: Present: normal exam, mucous membranes moist Neck exam: Present: normal inspection, full ROM, other (No stridor JVD or bruits). Absent: tenderness, meningismus, lymphadenopathy Respiratory exam: Present: normal lung sounds bilaterally. Absent: respiratory distress, wheezes, rales, rhonchi, stridor Cardiovascular Exam: Present: tachycardia, irregular rhythm, other (Heart rate variable from the mid 90s to the high 140s). Absent: systolic murmur, diastolic murmur, rubs, gallop, clicks GI/Abdominal exam: Present: soft, normal bowel sounds. Absent: distended, tenderness, guarding, rebound, rigid Extremities exam: Present: normal inspection, full ROM, normal capillary refill. Absent: tenderness, pedal edema, joint swelling, calf tenderness Back exam: Present: normal inspection Neurological exam: Present: alert, oriented X3, CN II-XII intact Psychiatric exam: Present: normal affect, normal mood Skin exam: Present: warm, dry, intact, normal color. Absent: rash Course Vital Signs 04/23/21 04/23/21 04/23/21 11:00 11:22 11:30 Temperature 98.1 F Pulse Rate 63 125 H 107 H Respiratory 16 21 20 Rate Blood Pressure 131/88 106/92 106/92 O2 Sat by Pulse 98 98 96 Oximetry 04/23/21 04/23/21 04/23/21 12:00 12:30 12:46 Temperature Pulse Rate 98 95 124 H Respiratory 8 L 21 16 Rate Blood Pressure 119/101 129/89 123/98 O2 Sat by Pulse 97 96 100 Oximetry - Reevaluation(s) Reevaluation #1: 04/23/21 13:56 Evaluation patient reveals he still and A. fib with RVR. I did discuss case with him also with Dr. Helms patient be admitted with cardiology consultation EKG Findings - EKG Results: EKG: interpreted by JALYA (Atrial fibrillation with a rapid ventricular response rate of 116 QRS 86 QT since QTC 342/475 minimal voltage criteria for LVH nonspecific ST-T wave configuration) Medical Decision Making - Medical Decision Making I did discuss findings with the patient he still demonstrates rapid atrial fibrillation the patient be admitted for inpatient evaluation and treatment - Lab Data Result diagrams: 04/23/21 11:20 04/23/21 11:20 Lab Results 04/23/21 04/23/21 04/23/21 Range/Units 11:20 11:20 11:20 WBC 10.1 (3.8-10.6) k/uL RBC 5.26 (4.30-5.90) m/uL Hgb 16.8 (13.0-17.5) gm/dL Hct 48.8 (39.0-53.0) % MCV 92.9 (80.0-100.0) fL MCH 31.9 (25.0-35.0) pg MCHC 34.4 (31.0-37.0) g/dL RDW 12.7 (11.5-15.5) % Plt Count 269 (150-450) k/uL MPV 8.2 Neutrophils % 65 % Lymphocytes % 23 % Monocytes % 7 % Eosinophils % 2 % Basophils % 1 % Neutrophils # 6.6 (1.3-7.7) k/uL Lymphocytes # 2.4 (1.0-4.8) k/uL Monocytes # 0.7 (0-1.0) k/uL Eosinophils # 0.2 (0-0.7) k/uL Basophils # 0.1 (0-0.2) k/uL PT 10.6 (9.0-12.0) sec INR 1.0 (<1.2) APTT 24.7 (22.0-30.0) sec Sodium 139 (137-145) mmol/L Potassium 4.4 (3.5-5.1) mmol/L Chloride 107 (98-107) mmol/L Carbon Dioxide 25 (22-30) mmol/L Anion Gap 7 mmol/L BUN 20 (9-20) mg/dL Creatinine 0.84 (0.66-1.25) mg/dL Est GFR (CKD-EPI)AfAm >90 (>60 ml/min/1.73 sqM) Est GFR (CKD-EPI)NonAf >90 (>60 ml/min/1.73 sqM) Glucose 95 (74-99) mg/dL Calcium 9.4 (8.4-10.2) mg/dL Magnesium 2.2 (1.6-2.3) mg/dL Total Bilirubin 0.4 (0.2-1.3) mg/dL AST 24 (17-59) U/L ALT 27 (4-49) U/L Alkaline Phosphatase 58 (38-126) U/L Creatine Kinase 112 (55-170) U/L Troponin I (0.000-0.034) ng/mL Total Protein 6.9 (6.3-8.2) g/dL Albumin 4.3 (3.5-5.0) g/dL TSH 9.360 H (0.465-4.680) mIU/L 04/23/21 Range/Units 11:20 WBC (3.8-10.6) k/uL RBC (4.30-5.90) m/uL Hgb (13.0-17.5) gm/dL Hct (39.0-53.0) % MCV (80.0-100.0) fL MCH (25.0-35.0) pg MCHC (31.0-37.0) g/dL RDW (11.5-15.5) % Plt Count (150-450) k/uL MPV Neutrophils % % Lymphocytes % % Monocytes % % Eosinophils % % Basophils % % Neutrophils # (1.3-7.7) k/uL Lymphocytes # (1.0-4.8) k/uL Monocytes # (0-1.0) k/uL Eosinophils # (0-0.7) k/uL Basophils # (0-0.2) k/uL PT (9.0-12.0) sec INR (<1.2) APTT (22.0-30.0) sec Sodium (137-145) mmol/L Potassium (3.5-5.1) mmol/L Chloride (98-107) mmol/L Carbon Dioxide (22-30) mmol/L Anion Gap mmol/L BUN (9-20) mg/dL Creatinine (0.66-1.25) mg/dL Est GFR (CKD-EPI)AfAm (>60 ml/min/1.73 sqM) Est GFR (CKD-EPI)NonAf (>60 ml/min/1.73 sqM) Glucose (74-99) mg/dL Calcium (8.4-10.2) mg/dL Magnesium (1.6-2.3) mg/dL Total Bilirubin (0.2-1.3) mg/dL AST (17-59) U/L ALT (4-49) U/L Alkaline Phosphatase (38-126) U/L Creatine Kinase (55-170) U/L Troponin I <0.012 (0.000-0.034) ng/mL Total Protein (6.3-8.2) g/dL Albumin (3.5-5.0) g/dL TSH (0.465-4.680) mIU/L - Radiology Data Radiology results: report reviewed (Imaging reviewed no acute findings please see complete report), image reviewed Critical Care Time Critical Care Time: Yes Total Critical Care Time: 31 Critical Care Time: Critical care time was initial presentation with history physical labs x-rays reevaluation patient to responsive therapy review of old charting was available discussed with the patient regarding findings discussed with the admitting physician admission orders documentation of the above Disposition Clinical Impression: Atrial fibrillation, Dyspnea Disposition: ADMITTED IP TO THIS HOSP Condition: Fair Referrals: Do Harrington MD [Primary Care Provider] - 1-2 days
[2021-04-23] MEDS: DILTIAZEM 125 MG in SODIUM CHLORIDE 0.9% 100 ML IV SCH (12:45)
--- NOTE | 2021-04-23 12:57 | XR ---
EXAMINATION TYPE: XR chest 2V DATE OF EXAM: 04/23/2021 COMPARISON: 04/20/2021 HISTORY: Shortness of breath TECHNIQUE: Frontal and lateral views of the chest are obtained. FINDINGS: Scattered senescent parenchymal changes noted. Hyperinflation compatible with COPD. No evidence for infiltrate. No evidence for atelectasis. Heart size is stable. Mediastinal structures are stable and grossly unremarkable. No evidence for hilar prominence. Degenerative changes dorsal spine. IMPRESSION: 1. No evidence for acute pulmonary disease.
[2021-04-23] MEDS ORDERED: ACETAMINOPHEN TAB 325 MG TAB PO PRN (14:05)
[2021-04-23] MEDS ORDERED: ONDANSETRON 4 MG/2 ML VIAL IVP PRN (14:05)
[2021-04-23] MEDS ORDERED: NALOXONE 0.4 MG/ML 1 ML VIAL IV PRN (14:05)
[2021-04-23] MEDS ORDERED: ALBUTEROL NEBULIZED 2.5 MG/3 ML INHALATION PRN (14:07)
[2021-04-23] MEDS: SODIUM CHLORIDE 0.9% 1,000 ML IV SCH ×2 (14:51→18:00)
[2021-04-23] MEDS: LEVOTHYROXINE 50 MCG TAB PO SCH (17:49)
[2021-04-23] MEDS: CICLESONIDE INHALATION SCH (22:57)
[2021-04-24] MEDS: DILTIAZEM 125 MG in SODIUM CHLORIDE 0.9% 100 ML IV SCH ×2 (05:38→08:14)
[2021-04-24] MEDS: PANTOPRAZOLE 40 MG TABLET PO SCH (05:39)
[2021-04-24] MEDS: LEVOTHYROXINE 50 MCG TAB PO SCH (05:39)
[2021-04-24] MEDS: SODIUM CHLORIDE 0.9% 1,000 ML IV SCH (05:39)
[2021-04-24] MEDS ORDERED: LEVOTHYROXINE 50 MCG TAB PO SCH (06:30)
[2021-04-24 07:54] LABS: African American GFR (CKD) >90 (>60 ml/min/1.73 sqM); Anion Gap 7 mmol/L; Blood Urea Nitrogen 16 mg/dL (9-20); Calcium 8.9 mg/dL (8.4-10.2); Carbon Dioxide 30 mmol/L (22-30); Chloride 103 mmol/L (98-107); Glucose 96 mg/dL (74-99); Non-African American GFR(CKD) >90 (>60 ml/min/1.73 sqM); Sodium 140 mmol/L (137-145)
[2021-04-24] MEDS: RIVAROXABAN 20 MG TAB PO SCH (08:39)
[2021-04-24] MEDS: LORATADINE 10 MG TAB PO SCH (08:39)
[2021-04-24] MEDS: hydroCHLOROthiazide 25 MG TAB PO SCH (08:39)
[2021-04-24] MEDS ORDERED: atenoloL 50 MG TAB PO SCH (09:00)
[2021-04-24] MEDS ORDERED: amLODIPine 10 MG TAB PO SCH (09:00)
[2021-04-24] MEDS: lisinopriL 5 MG TAB PO SCH ×2 (12:34→20:15)
[2021-04-24] MEDS: METOPROLOL TARTRATE 50 MG TAB PO SCH ×2 (12:34→20:15)
--- NOTE | 2021-04-24 13:40 | P.CRDCN ---
History of Present Illness Consult date: 04/24/21 Requesting physician: Tere Helms Reason for Consult (text): rapid atrial fibrillation Chief complaint: diaphoresis, dizziness, RHB History of present illness: This is a pleasant 55-year-old gentleman with history of hypertension, dyslipidemia, GERD nonobstructive CAD and former nicotine dependency, former alcohol and marijuana use. Was recently admitted with chest discomfort and found to be in atrial fibrillation with rapid ventricular response. He underwent stress testing which showed evidence of ischemia. 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 At that time echocardiogram with Doppler study showed utterly impaired LV systolic function with an ejection fraction of 35-40%. He was initiated on beta praveen therapy and anticoagulation. The plan was for him to be scheduled for DESIREE guided cardioversion in a few weeks. He was found to have elevated TSH during his last admission and somehow thyroid supplement was overlooked on discharge. He was discharged back to the long term where he has been incarcerated. He woke up yesterday and was feeling somewhat diaphoretic and dizzy and felt his heart racing in his throat. He was noted to have rapid heart rate on examination by the nurse at the long term. Upon Presentation to the emergency department he was found to be in atrial fibrillation with rapid ventricular response. He was initiated on Cardizem drip. Since arrival to the floor his heart rate has been better controlled. He has been initiated on levothyroxine. He is currently on hydrochlorothiazide 25 mg by mouth daily, amlodipine 10 mg by mouth daily, atenolol 50 mg by mouth daily and Xarelto 90 mg by mouth daily. Past Medical History Past Medical History: Atrial Fibrillation, COPD, Hypertension History of Any Multi-Drug Resistant Organisms: None Reported Past Surgical History: Hernia Repair Additional Past Surgical History / Comment(s): left thumb amputation Left foot surgery Past Anesthesia/Blood Transfusion Reactions: No Reported Reaction Past Psychological History: Anxiety, Bipolar Smoking Status: Former smoker Past Alcohol Use History: Rare Past Drug Use History: None Reported Medications and Allergies Home Medications Medication Instructions Recorded Confirmed Type Albuterol Inhaler [Ventolin Hfa 2 puff INHALATION RT-QID PRN 04/20/21 04/23/21 History Inhaler] Albuterol Nebulized [Ventolin 2.5 mg INHALATION RT-QID PRN 04/20/21 04/23/21 History Nebulized] Atenolol [Tenormin] 50 mg PO DAILY 04/20/21 04/23/21 History Ciclesonide [Alvesco] 1 puff INHALATION RT-BID 04/20/21 04/23/21 History Loratadine 10 mg PO DAILY 04/20/21 04/23/21 History Omeprazole [PriLOSEC] 20 mg PO DAILY 04/20/21 04/23/21 History amLODIPine [Norvasc] 10 mg PO DAILY 04/20/21 04/23/21 History hydroCHLOROthiazide [Hydrodiuril] 25 mg PO DAILY 04/20/21 04/23/21 History Rivaroxaban [Xarelto] 20 mg PO DAILY #30 tab 04/21/21 04/23/21 Rx Allergies Allergy/AdvReac Type Severity Reaction Status Date / Time No Known Allergies Allergy Verified 04/23/21 14:49 Physical Exam Vitals: Vital Signs Temp Pulse Pulse Resp BP BP Pulse Ox 04/24/21 08:00 97.8 F 76 16 133/92 100 04/24/21 04:00 98.0 F 64 18 135/94 97 04/24/21 02:00 97 18 04/23/21 22:47 97.9 F 106 H 17 125/81 95 04/23/21 19:40 98.1 F 88 18 144/71 96 04/23/21 16:00 97.8 F 62 18 148/99 98 04/23/21 14:30 88 20 123/98 98 04/23/21 14:00 89 21 133/99 99 04/23/21 13:30 104 H 14 98 Intake and Output 04/23/21 04/24/21 04/24/21 22:59 06:59 14:59 Intake Total 240 84.417 253 Balance 240 84.417 253 Intake: Intake, IV Titration 84.417 13 Amount Diltiazem 125 mg In 84.417 13 Sodium Chloride 0.9% 100 ml @ 5 MG/HR 5 mls/hr IV .Q24H [facility] Rx#:[id number] Oral 240 240 Other: Voiding Method Urinal Urinal Urinal # Voids 1 1 Weight 80.739 kg 81.1 kg PHYSICAL EXAMINATION: This is a 55-year-old male in no apparent distress at the time of my examination. VITAL SIGNS: Blood pressure 133/92, heart rate 76, respirations 16, temp 97.8F. Patient is 100 % on room air. HEENT: Head is atraumatic, normocephalic. Pupils are equal, round. Sclerae anicteric. Conjunctivae are clear. Mucous membranes of the mouth are moist. Neck is supple. There is no elevated jugular venous pressure. No carotid bruit is heard. CHEST EXAMINATION: Clear to auscultation bilaterally. No wheezes rales or rhonchi. Respirations even and nonlabored. HEART EXAMINATION: Heart irregular irregular, positive S1 and S2. No S3. No S4. No clicks, rubs or murmurs. ABDOMEN: Soft, nontender. Bowel sounds are heard. No organomegaly noted. EXTREMITIES: 2+ peripheral pulses with no evidence of peripheral edema and no calf tenderness noted. NEUROLOGIC EXAMINATION: Patient is awake, alert and oriented x3. Results 04/23/21 11:20 04/24/21 07:04 Cardiac Enzymes 04/23/21 Range/Units 17:02 Troponin I <0.012 (0.000-0.034) ng/mL Comprehensive Metabolic Panel 04/24/21 Range/Units 07:04 Sodium 140 (137-145) mmol/L Potassium 4.0 (3.5-5.1) mmol/L Chloride 103 (98-107) mmol/L Carbon Dioxide 30 (22-30) mmol/L BUN 16 (9-20) mg/dL Creatinine 0.84 (0.66-1.25) mg/dL Glucose 96 (74-99) mg/dL Calcium 8.9 (8.4-10.2) mg/dL Current Medications Generic Name Dose Route Start Last Admin Trade Name Freq PRN Reason Stop Dose Admin Acetaminophen 650 mg 04/23/21 14:05 Acetaminophen Tab 325 Mg Tab PO Q6HR PRN Mild Pain or Fever > 100.5 Albuterol Sulfate 2.5 mg 04/23/21 14:07 Albuterol Nebulized 2.5 Mg/3 Ml INHALATION RT-QID PRN Shortness Of Breath Hydrochlorothiazide 25 mg 04/24/21 09:00 04/24/21 08:39 Hydrochlorothiazide 25 Mg Tab PO 25 mg DAILY RAMAKRISHNA Administration Sodium Chloride 1,000 mls @ 75 mls/hr 04/23/21 14:15 04/24/21 05:39 Saline 0.9% IV 75 mls/hr .[id number] RAMAKRISHNA Administration Levothyroxine Sodium 50 mcg 04/23/21 16:13 04/24/21 05:39 Levothyroxine 50 Mcg Tab PO 50 mcg DAILY@0630 RAMAKRISHNA Administration Lisinopril 5 mg 04/24/21 11:15 04/24/21 12:34 Lisinopril 5 Mg Tab PO 5 mg BID RAMAKRISHNA Administration Loratadine 10 mg 04/24/21 09:00 04/24/21 08:39 Loratadine 10 Mg Tab PO 10 mg DAILY RAMAKRISHNA Administration Metoprolol Tartrate 50 mg 04/24/21 11:15 04/24/21 12:34 Metoprolol Tartrate 50 Mg Tab PO 50 mg BID RAMAKRISHNA Administration Naloxone HCl 0.2 mg 04/23/21 14:05 Naloxone 0.4 Mg/Ml 1 Ml Vial IV Q2M PRN Opioid Reversal Ciclesonide [Alvesco 1 puff 04/23/21 20:00 04/23/21 22:57 ] 6.1 Gm Hfa Inhaler INHALATION Not Given RT-BID [facility] Ondansetron HCl 4 mg 04/23/21 14:05 Ondansetron 4 Mg/2 Ml Vial IVP Q8HR PRN Nausea And Vomiting Pantoprazole Sodium 40 mg 04/24/21 07:30 04/24/21 05:39 Pantoprazole 40 Mg Tablet PO 40 mg [id number] RAMAKRISHNA Administration Rivaroxaban 20 mg 04/24/21 09:00 04/24/21 08:39 Rivaroxaban 20 Mg Tab PO 20 mg DAILY RAMAKRISHNA Administration Protocol Intake and Output 04/23/21 04/24/21 04/24/21 22:59 06:59 14:59 Intake Total 240 84.417 253 Balance 240 84.417 253 Intake: Intake, IV Titration 84.417 13 Amount Diltiazem 125 mg In 84.417 13 Sodium Chloride 0.9% 100 ml @ 5 MG/HR 5 mls/hr IV .Q24H [facility] Rx#:[id number] Oral 240 240 Other: Voiding Method Urinal Urinal Urinal # Voids 1 1 Weight 80.739 kg 81.1 kg 04/23/21 11:04/24/21 07:04 Assessment and Plan Assessment: #1 persistent atrial fibrillation with rapid ventricular response, heart rate currently controlled #2 cardiomyopathy, nonischemic #3 hypertension #4 hyperlipidemia #5 CAD Plan: From cardiology perspective will discontinue amlodipine and atenolol. We will start the patient on metoprolol titrate 50 mg by mouth twice a day and lisinopril. Discontinue IV Cardizem. Hep-Lock the patient. If the patient's heart rates remained controlled patient may be discharged and follow-up with Dr. Garcia as previously scheduled. GASTROINTESTINAL TECHNICIAN note has been reviewed, I agree with a documented findings and plan of care. Patient was seen and examined.
--- NOTE | 2021-04-24 15:16 | P.HPIM ---
History of Present Illness H&P Date: 04/23/21 Chief Complaint: Palpitations 55-year-old male who had the onset 3 days ago of chest pain and palpitations was found have A. christian who is back today with complaints of palpitations or racing heart. He also has some shortness of breath and denies any chest pain at this time no fevers chills nausea vomiting sweats. Was recently admitted with chest discomfort and found to be in atrial fibrillation with rapid ventricular response. He underwent stress testing which showed evidence of ischemia. 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 At that time echocardiogram with Doppler study showed utterly impaired LV systolic function with an ejection fraction of 35-40%. He was initiated on beta praveen therapy and anticoagulation. The plan was for him to be scheduled for DESIREE guided cardioversion in a few weeks. He was found to have elevated TSH during his last admission and somehow thyroid supplement was overlooked on discharge. He was discharged back to the long term where he has been incarcerated. He woke up yesterday and was feeling somewhat diaphoretic and dizzy and felt his heart racing in his throat. He was noted to have rapid heart rate on examination by the nurse at the long term. Upon Presentation to the emergency department he was found to be in atrial fibrillation with rapid ventricular response. He was initiated on Cardizem drip. Review of Systems REVIEW OF SYSTEMS: CONSTITUTIONAL: No fever, no malaise, no fatigue. HEENT: No recent visual problems or hearing problems. Denied any sore throat. CARDIOVASCULAR: No chest pain, orthopnea, PND, no palpitations, no syncope. PULMONARY: No shortness of breath, no cough, no hemoptysis. GASTROINTESTINAL: No diarrhea, no nausea, no vomiting, no abdominal pain. NEUROLOGICAL: No headaches, no weakness, no numbness. HEMATOLOGICAL: Denies any bleeding or petechiae. GENITOURINARY: Denies any burning micturition, frequency, or urgency. MUSCULOSKELETAL/RHEUMATOLOGICAL: Denies any joint pain, swelling, or any muscle pain. ENDOCRINE: Denies any polyuria or polydipsia. The rest of the 14-point review of systems is negative. Past Medical History Past Medical History: Atrial Fibrillation, COPD, Hypertension History of Any Multi-Drug Resistant Organisms: None Reported Past Surgical History: Hernia Repair Additional Past Surgical History / Comment(s): left foot, left thumb amputation Past Anesthesia/Blood Transfusion Reactions: No Reported Reaction Past Psychological History: Anxiety, Bipolar Smoking Status: Former smoker Past Alcohol Use History: Rare Past Drug Use History: None Reported Medications and Allergies Home Medications Medication Instructions Recorded Confirmed Type Albuterol Inhaler [Ventolin Hfa 2 puff INHALATION RT-QID PRN 04/20/21 04/23/21 History Inhaler] Albuterol Nebulized [Ventolin 2.5 mg INHALATION RT-QID PRN 04/20/21 04/23/21 History Nebulized] Atenolol [Tenormin] 50 mg PO DAILY 04/20/21 04/23/21 History Ciclesonide [Alvesco] 1 puff INHALATION RT-BID 04/20/21 04/23/21 History Loratadine 10 mg PO DAILY 04/20/21 04/23/21 History Omeprazole [PriLOSEC] 20 mg PO DAILY 04/20/21 04/23/21 History amLODIPine [Norvasc] 10 mg PO DAILY 04/20/21 04/23/21 History hydroCHLOROthiazide [Hydrodiuril] 25 mg PO DAILY 04/20/21 04/23/21 History Rivaroxaban [Xarelto] 20 mg PO DAILY #30 tab 04/21/21 04/23/21 Rx Allergies Allergy/AdvReac Type Severity Reaction Status Date / Time No Known Allergies Allergy Verified 04/23/21 14:49 Physical Exam Vitals: Vital Signs Temp Pulse Resp BP Pulse Ox 04/23/21 14:30 88 20 123/98 98 04/23/21 14:00 89 21 133/99 99 04/23/21 13:30 104 H 14 98 04/23/21 13:00 90 20 123/98 99 04/23/21 12:46 124 H 16 123/98 100 04/23/21 12:30 95 21 129/89 96 04/23/21 12:00 98 8 L 119/101 97 04/23/21 11:30 107 H 20 106/92 96 04/23/21 11:22 125 H 21 106/92 98 04/23/21 11:00 98.1 F 63 16 131/88 98 Intake and Output 04/23/21 04/23/2121 06:59 14:59 22:59 Other: Weight 80.739 kg PHYSICAL EXAMINATION: GENERAL: The patient is alert and oriented x3, not in any acute distress. Well developed, well nourished. HEENT: Pupils are round and equally reacting to light. EOMI. No scleral icterus. No conjunctival pallor. Normocephalic, atraumatic. No pharyngeal erythema. No thyromegaly. CARDIOVASCULAR: S1 and S2 present. No murmurs, rubs, or gallops. PULMONARY: Chest is clear to auscultation, no wheezing or crackles. ABDOMEN: Soft, nontender, nondistended, normoactive bowel sounds. No palpable organomegaly. MUSCULOSKELETAL: No joint swelling or deformity. EXTREMITIES: No cyanosis, clubbing, or pedal edema. NEUROLOGICAL: Gross neurological examination did not reveal any focal deficits. SKIN: No rashes. Results CBC & Chem 7: 04/23/21 11:20 04/24/21 07:04 Labs: Abnormal Lab Results - Last 24 Hours (Table) 04/23/21 Range/Units 11:20 TSH 9.360 H (0.465-4.680) mIU/L Assessment and Plan Assessment: 1. Persistent atrial fibrillation with rapid ventricular response, heart rate currently controlled - Patient is placed on IV Cardizem infusion resulting in improved heart rate staying below 110; we will monitor EKG and trend troponin; cardiology is consulted for further recommendations 2. Nonischemic cardiomyopathy 3. Hypothyroidism; has not been placed on thyroid replacement therapy; we will start patient on levothyroxine 50 MCG daily; follow-up thyroid levels as an outpatient 4. Hypertension; stable on home dose of amlodipine 10 mg daily, atenolol 50 mg daily and hydrochlorothiazide 25 mg daily 5. Hyperlipidemia; currently not on statin therapy; we will repeat lipid profile 6. Coronary artery disease; stable on aspirin, beta blockers; not on statin therapy 7. COPD; not in exacerbation; Ventolin inhalers 2 puffs 4 times a day when necessary DVT prophylaxis; SCDs/systemic anticoagulation CODE STATUS; full code
[2021-04-24] MEDS: CICLESONIDE INHALATION SCH (17:23)
--- NOTE | 2021-04-24 22:40 | P.PN ---
Subjective Progress Note Date: 04/24/21 Principal diagnosis: Atrial fibrillation with rapid ventricular response Hypothyroidism 55-year-old gentleman with history of hypertension, dyslipidemia, GERD nonobstructive CAD and former nicotine dependency, former alcohol and marijuana use. Was recently admitted with chest discomfort and found to be in atrial fibrillation with rapid ventricular response. He underwent stress testing which showed evidence of ischemia. 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 At that time echocardiogram with Doppler study showed utterly impaired LV systolic function with an ejection fraction of 35-40%. He was initiated on beta praveen therapy and anticoagulation. The plan was for him to be scheduled for DESIREE guided cardioversion in a few weeks. He was found to have elevated TSH during his last admission and somehow thyroid supplement was overlooked on discharge. He was discharged back to the detention where he has been incarcerated. He woke up yesterday and was feeling somewhat diaphoretic and dizzy and felt his heart racing in his throat. He was noted to have rapid heart rate on examination by the nurse at the detention. Upon Presentation to the emergency department he was found to be in atrial fibrillation with rapid ventricular response. He was initiated on Cardizem drip. 04/24/2021 Patient is seen and evaluated in room at bedside; denies any complaint of chest shortness of breath We will signs are reviewed and remained stable with a temperature of 97.8, pulse 76 with occasional acceleration to 106, respirations 16 and blood pressure 133/92 with SpO2 of 100% Left a few shows sodium of 140, potassium 4.0, BUN 69. No 0.8 Patient has been evaluated by cardiology- recommending to discontinue amlodipine and atenolol, patient has been placed on metoprolol tartrate 50 mg twice a day and lisinopril is continued IV Cardizem is discontinued; patient to be monitored off IV Cardizem with plans to discharge if heart rate remained stable Objective - Vital Signs Vital signs: Vital Signs Temp 97.8 F 04/24/21 08:00 Pulse 78 04/24/21 14:00 Resp 16 04/24/21 14:00 BP 144/107 04/24/21 12:00 Pulse Ox 97 04/24/21 12:00 Intake & Output 04/23/21 04/24/21 04/24/21 18:59 06:59 18:59 Intake Total 240 84.417 493 Balance 240 84.417 493 Weight 80.739 kg 81.1 kg Intake: Intake, IV Titration 84.417 13 Amount Diltiazem 125 mg In 84.417 13 Sodium Chloride 0.9% 100 ml @ 5 MG/HR 5 mls/hr IV .Q24H [facility] Rx#:[id number] Oral 240 480 Other: Voiding Method Urinal Urinal # Voids 1 - Exam PHYSICAL EXAMINATION: GENERAL: The patient is alert and oriented x3, not in any acute distress. Well developed, well nourished. HEENT: Pupils are round and equally reacting to light. EOMI. No scleral icterus. No conjunctival pallor. Normocephalic, atraumatic. No pharyngeal erythema. No thyromegaly. CARDIOVASCULAR: S1 and S2 present. No murmurs, rubs, or gallops. PULMONARY: Chest is clear to auscultation, no wheezing or crackles. ABDOMEN: Soft, nontender, nondistended, normoactive bowel sounds. No palpable organomegaly. MUSCULOSKELETAL: No joint swelling or deformity. EXTREMITIES: No cyanosis, clubbing, or pedal edema. NEUROLOGICAL: Gross neurological examination did not reveal any focal deficits. SKIN: No rashes. - Labs CBC & Chem 7: 04/23/21 11:20 04/24/21 07:04 Assessment and Plan Assessment: 1. Persistent atrial fibrillation with rapid ventricular response, heart rate currently controlled - Patient is placed on IV Cardizem infusion resulting in improved heart rate staying below 110; we will monitor EKG and trend troponin; cardiology is consulted for further recommendations 2. Nonischemic cardiomyopathy 3. Hypothyroidism; has not been placed on thyroid replacement therapy; we will start patient on levothyroxine 50 MCG daily; follow-up thyroid levels as an outpatient 4. Hypertension; stable on home dose of amlodipine 10 mg daily, atenolol 50 mg daily and hydrochlorothiazide 25 mg daily 5. Hyperlipidemia; currently not on statin therapy; we will repeat lipid profile 6. Coronary artery disease; stable on aspirin, beta blockers; not on statin therapy 7. COPD; not in exacerbation; Ventolin inhalers 2 puffs 4 times a day when necessary DVT prophylaxis; SCDs/systemic anticoagulation CODE STATUS; full code
[2021-04-25] MEDS: CICLESONIDE INHALATION SCH ×3 (06:16→20:49)
[2021-04-25] MEDS: PANTOPRAZOLE 40 MG TABLET PO SCH (06:17)
[2021-04-25] MEDS: LEVOTHYROXINE 50 MCG TAB PO SCH (06:17)
[2021-04-25] MEDS: METOPROLOL TARTRATE 50 MG TAB PO SCH ×3 (08:53→20:51)
[2021-04-25] MEDS: RIVAROXABAN 20 MG TAB PO SCH (08:53)
[2021-04-25] MEDS: hydroCHLOROthiazide 25 MG TAB PO SCH (08:54)
[2021-04-25] MEDS: lisinopriL 5 MG TAB PO SCH ×2 (08:54→20:51)
[2021-04-25] MEDS: LORATADINE 10 MG TAB PO SCH (08:54)
[2021-04-25 08:56] LABS: African American GFR (CKD) >90 (>60 ml/min/1.73 sqM); Anion Gap 7 mmol/L; Blood Urea Nitrogen 19 mg/dL (9-20); Calcium 9.3 mg/dL (8.4-10.2); Carbon Dioxide 29 mmol/L (22-30); Chloride 102 mmol/L (98-107); Glucose 99 mg/dL (74-99); Non-African American GFR(CKD) >90 (>60 ml/min/1.73 sqM); Potassium 4.2 mmol/L (3.5-5.1); Sodium 138 mmol/L (137-145)
[2021-04-25] MEDS ORDERED: FLECAINIDE 50 MG TAB PO SCH (09:45)
[2021-04-25] MEDS: AMIODARONE 200 MG TAB PO SCH ×2 (11:27→20:51)
[2021-04-25] MEDS: MULTIVITAMINS, THERA 1 EACH TAB PO SCH (11:27)
[2021-04-25] MEDS: THIAMINE 100 MG TAB PO SCH (11:27)
[2021-04-25 11:31] LABS: T4, Free (Free Thyroxine) 0.98 ng/dL (0.78-2.19)
--- NOTE | 2021-04-25 12:46 | P.PN ---
Subjective This is a pleasant 55-year-old male past medical history significant for hypertension, dyslipidemia, nonobstructive coronary artery disease, newly diagnosed paroxysmal atrial fibrillation, nonischemic cardiomyopathy and former alcohol, nicotine and marijuana dependence. He is currently being treated for poorly controlled atrial fibrillation which was recently diagnosed last week. He is currently incarcerated and does not believe he is getting his medications as prescribed. Blood pressure 123/81 heart rate 102 afebrile maintaining oxygen saturation on room air. Currently maintained on Xarelto 20 mg daily, metoprolol 50 mg twice a day, lisinopril 5 mg twice a day and hydrochlorothiazide 25 mg daily. Laboratory data reviewed, sodium 138, potassium 4.2, creatinine 0.84, TSH 9.36, free T4 0.98 and free T3 4.0. GENERAL: Well-appearing, well-nourished and in no acute distress. NECK: Supple without JVD or thyromegaly. LUNGS: Breath sounds clear to auscultation bilaterally. Respiration equal and unlabored. No wheezes, rales or rhonchi. HEART: Irregular rate and rhythm without murmurs, rubs or gallops. S1 and S2 heard. EXTREMITIES: Normal range of motion, no edema. No clubbing or cyanosis. Peripheral pulses intact. ASSESSMENT Paroxysmal atrial fibrillation with poorly controlled ventricular rates Non-ischemic cardiomyopathy Non-obstructive CAD Hypertension PLAN Discontinue hydrochlorothiazide. Add amiodarone 400 mg BID for rate and hopefully rhythm control. Increase lopressor to 50 mg TID. If he does not convert to SR we will plan for DESIREE/cardioversion tomorrow with Dr. Garcia. Continue xarelto without interruption. Nurse Practitioner note has been reviewed, I agree with a documented findings and plan of care. Patient was seen and examined. Objective - Vital Signs Vital signs: Vital Signs Temp 98.4 F 04/25/21 11:24 Pulse 102 H 04/25/21 11:24 Resp 16 04/25/21 11:24 BP 123/81 04/25/21 11:24 Pulse Ox 94 L 04/25/21 11:24 Intake & Output 04/24/21 04/25/21 04/25/21 18:59 06:59 18:59 Intake Total 733 Balance 733 Weight 80.8 kg Intake: Intake, IV Titration 13 Amount Diltiazem 125 mg In 13 Sodium Chloride 0.9% 100 ml @ 5 MG/HR 5 mls/hr IV .Q24H [facility] Rx#:[id number] Oral 720 Other: Voiding Method Urinal Urinal Toilet # Voids 2 3 - Labs CBC & Chem 7: 04/23/21 11:20 04/25/21 07:31
[2021-04-25] MEDS: LACTATED RINGERS 1,000 ML IV SCH (20:48)
[2021-04-25] MEDS: SODIUM CHLORIDE 0.9% 1,000 ML IV SCH (20:48)
[2021-04-25] MEDS ORDERED: ALPRAZolam 0.25 MG TAB PO STA (22:35)
[2021-04-26] MEDS: PANTOPRAZOLE 40 MG TABLET PO SCH (06:24)
[2021-04-26] MEDS ORDERED: PROPOFOL 10 MG/ML 20 ML VIAL IV ONE (09:32)
[2021-04-26] MEDS ORDERED: IV FLUID CONTINUATION 1,000 ML IV ONE (09:37)
[2021-04-26] MEDS: CICLESONIDE INHALATION SCH (11:08)
[2021-04-26] MEDS: METOPROLOL TARTRATE 50 MG TAB PO SCH (11:32)
[2021-04-26] MEDS: LORATADINE 10 MG TAB PO SCH (11:34)
[2021-04-26] MEDS: MULTIVITAMINS, THERA 1 EACH TAB PO SCH (11:34)
[2021-04-26] MEDS: lisinopriL 5 MG TAB PO SCH ×2 (11:34→20:14)
[2021-04-26] MEDS: AMIODARONE 200 MG TAB PO SCH ×2 (11:34→20:14)
[2021-04-26] MEDS: RIVAROXABAN 20 MG TAB PO SCH (11:37)
[2021-04-26] MEDS: THIAMINE 100 MG TAB PO SCH (11:37)
[2021-04-26] MEDS: LEVOTHYROXINE 50 MCG TAB PO SCH (11:37)
[2021-04-26] MEDS: SODIUM CHLORIDE 0.9% 1,000 ML IV SCH ×2 (11:38→20:18)
--- NOTE | 2021-04-26 11:54 | ECHOT ---
TRANSESOPHAGEAL ECHOCARDIOGRAM PERFORMING PHYSICIAN: Dr. Peter Garcia M.D. PROCEDURE PERFORMED: 1. Transesophageal echocardiogram. 2. Cardioversion. This is a 55-year-old gentleman who was admitted to hospital last week with cardiomyopathy and atrial fibrillation, underwent cardiac catheterization that did not reveal significant obstructive CAD. The plan was to anticoagulate him bring him back and do cardioversion on him. However, he is readmitted with sustained palpitations and atrial fibrillation with rapid ventricular rate due to which she was advised to undergo DESIREE cardioversion. PROCEDURE NOTE: After obtaining informed consent, transesophageal echocardiogram was performed in left lateral position using an Omni plane probe. Local and IV sedation were obtained by the electrical automation engineer. The patient tolerated the procedure well without any obvious immediate complications. Color Doppler 2D M-mode and spectral analysis was performed. FINDINGS: 1. There is no intracardiac thrombus within the left atrial appendage left atrium right atrium right ventricle or left ventricle. 2. Right atrium appears enlarged. 3. Left ventricle has normal size and systolic function. 4. Interatrial septum; there is no evidence of [id number] shunt by color-flow Doppler or [id number] shunt by agitated saline contrast study. 5. Mitral valve shows trace mitral regurgitation. 6. Aortic valve is a 3-leaflet valve. There is no evidence of aortic stenosis or regurgitation. The aortic sinus appears dilated measuring about 4.2 cm. Ascending aorta measures within normal limits. CONCLUSIONS: 1. No intracardiac thrombus. 2. Dilated sinuses of the aorta. 3. Normal LV systolic function. PLAN: Will proceed with cardioversion. CARDIOVERSION NOTE: INDICATION: persistent atrial fibrillation with poorly controlled ventricular rate. After obtaining informed consent, cardioversion performed using 200 joules of synchronized DC current. He converted to sinus rhythm following a single shock. The transesophageal echocardiogram is performed that ruled out intracardiac thrombus. The patient is adequately anticoagulated with Xarelto MMODL / IJN: [id number] /
[2021-04-26] MEDS: LACTATED RINGERS 1,000 ML IV SCH (16:51)
[2021-04-26] MEDS: METOPROLOL TARTRATE 25 MG TAB PO SCH (20:15)
[2021-04-27] MEDS: LEVOTHYROXINE 50 MCG TAB PO SCH (06:43)
[2021-04-27] MEDS: PANTOPRAZOLE 40 MG TABLET PO SCH (06:43)
[2021-04-27 07:47] VITALS: RESP 16
[2021-04-27] MEDS: CICLESONIDE INHALATION SCH ×2 (08:20→08:22)
[2021-04-27] MEDS: THIAMINE 100 MG TAB PO SCH (08:23)
[2021-04-27] MEDS: METOPROLOL TARTRATE 25 MG TAB PO SCH (08:23)
[2021-04-27] MEDS: LORATADINE 10 MG TAB PO SCH (08:23)
[2021-04-27] MEDS: AMIODARONE 200 MG TAB PO SCH (08:23)
[2021-04-27] MEDS: lisinopriL 5 MG TAB PO SCH (08:23)
[2021-04-27] MEDS: MULTIVITAMINS, THERA 1 EACH TAB PO SCH (08:23)
[2021-04-27] MEDS: RIVAROXABAN 20 MG TAB PO SCH (08:23)
--- NOTE | 2021-04-27 09:54 | P.PN ---
Subjective This is a pleasant 55-year-old male past medical history significant for hypertension, dyslipidemia, nonobstructive coronary artery disease, newly diagnosed paroxysmal atrial fibrillation, nonischemic cardiomyopathy and former alcohol, nicotine and marijuana dependence. He is currently being treated for poorly controlled atrial fibrillation which was recently diagnosed last week. He is currently incarcerated and does not believe he is getting his medications as prescribed. Blood pressure 123/81 heart rate 102 afebrile maintaining oxygen saturation on room air. Currently maintained on Xarelto 20 mg daily, metoprolol 50 mg twice a day, lisinopril 5 mg twice a day and hydrochlorothiazide 25 mg daily. Laboratory data reviewed, sodium 138, potassium 4.2, creatinine 0.84, TSH 9.36, free T4 0.98 and free T3 4.0. 04/27/2021 Pt is seen and examined sitting up in bed in no acute distress. He is s/p DESIREE/CV and is maintaining SR. Vital signs stable. Heart rates remain in the 55-65 range on beta blockers and amiodarone. GENERAL: Well-appearing, well-nourished and in no acute distress. NECK: Supple without JVD or thyromegaly. LUNGS: Breath sounds clear to auscultation bilaterally. Respiration equal and unlabored. No wheezes, rales or rhonchi. HEART: Regular rate and rhythm without murmurs, rubs or gallops. S1 and S2 heard. EXTREMITIES: Normal range of motion, no edema. No clubbing or cyanosis. Peripheral pulses intact. ASSESSMENT Paroxysmal atrial fibrillation with poorly controlled ventricular rates Non-ischemic cardiomyopathy Non-obstructive CAD Hypertension PLAN Stable for discharge from a cardiac perspective. Amiodaroine taper in discharge instructions. Nurse Practitioner note has been reviewed, I agree with a documented findings and plan of care. Patient was seen and examined. Objective - Vital Signs Vital signs: Vital Signs Temp 98.4 F 04/27/21 07:46 Pulse 67 04/27/21 07:49 Resp 16 04/27/21 07:49 BP 158/96 04/27/21 07:46 Pulse Ox 97 04/27/21 07:46 Intake & Output 04/26/21 04/27/21 04/27/21 18:59 06:59 18:59 Intake Total 400 240 480 Output Total 225 280 Balance 175 -40 480 Weight 81.5 kg Intake: IV 100 Oral 300 240 480 Output: Urine 225 280 Other: Voiding Method Toilet Toilet Toilet # Voids 1 - Labs CBC & Chem 7: 04/23/21 11:20 04/25/21 07:31
[2021-04-27 12:23] VITALS: BP 158/98; PULSE 64; TEMP 98.2
== END 2021-04-27 14:39 | DRG 310 ==
LOC: EC 10:58 → 3SCARD 14:08 → 3NCARDOBS 04-25 22:40 → 3SCARD 04-25 22:40
PROVIDERS: ADMIT Internal Medicine; ATTEND Internal Medicine
PROC: B246ZZ4 Ultrasonography of Right and Left Heart, Transesophageal (ICD-10-PCS; 2021-04-26)
PROC: 5A2204Z Restoration of Cardiac Rhythm, Single (ICD-10-PCS; principal; 2021-04-26 09:30)
DX: I48.19 Other persistent atrial fibrillation (principal); Z79.01 Long term (current) use of anticoagulants; J44.9 Chronic obstructive pulmonary disease, unspecified; F31.9 Bipolar disorder, unspecified; F41.9 Anxiety disorder, unspecified; Z87.891 Personal history of nicotine dependence; I42.8 Other cardiomyopathies; E03.9 Hypothyroidism, unspecified; I10 Essential (primary) hypertension; E78.5 Hyperlipidemia, unspecified; I25.10 Atherosclerotic heart disease of native coronary artery without angina pectoris; Z79.899 Other long term (current) drug therapy
CPT/HCPCS: 36415; 71046; 80048; 80053; 82550; 83735; 84439; 84443; 84481; 84484; 85025; 85610; 85730; 92960; 93005; 93312; 93320; 93325; 96374; 99291

== ENCOUNTER 2021-05-07 19:04 | Emergency (ER) | payer OTHER ==
[2021-05-07 19:10] VITALS: TEMP 98.2
[2021-05-07] MEDS ORDERED: ASPIRIN 81 MG PO STA (19:22)
--- NOTE | 2021-05-07 19:37 | ED ---
Chest Pain HPI - General Chief Complaint: Chest Pain Stated Complaint: Covid +, Heart issues Time Seen by Provider: 05/07/21 19:10 Source: patient, police Mode of arrival: ambulatory - History of Present Illness Initial Comments: 55 year-old male patient presents to the emergency department for evaluation after having an episode of chest pain that lasted about 20 minutes. States that he was laying down when the pain came on. States he felt like his left arm went numb and cold. States he was able to move it. State he did get lightheaded. Denies any shortness of breath, nausea, or vomiting. The nurse at the residential stated that his heart rate was on the slow side this morning. He was recently admitted for afib and started on new medications. He does smoke cigarettes. Denies any history of diabetes or known CAD. Denies family history of CAD. Patient denies any recent rash, fever, chills, cough, abdominal pain, diarrhea, constipation, back pain, numbness, tingling, weakness, hematuria, dysuria, urinary urgency, urinary frequency, headache, visual changes, or any other complaints. - Related Data Home Medications Medication Instructions Recorded Confirmed Albuterol Inhaler [Ventolin Hfa 2 puff INHALATION RT-QID PRN 04/20/21 05/07/21 Inhaler] Albuterol Nebulized [Ventolin 2.5 mg INHALATION RT-QID PRN 04/20/21 05/07/21 Nebulized] Ciclesonide [Alvesco] 1 puff INHALATION RT-BID 04/20/21 05/07/21 Loratadine 10 mg PO DAILY 04/20/21 05/07/21 Omeprazole [PriLOSEC] 20 mg PO DAILY 04/20/21 05/07/21 Acetaminophen Tab [Tylenol Tab] 500 mg PO BID PRN 05/07/21 05/07/21 Amiodarone [Cordarone] See Taper PO DIRECTED 05/07/21 05/07/21 Previous Rx's Medication Instructions Recorded Levothyroxine Sodium 25 mcg PO DAILY #30 tablet 04/27/21 Metoprolol Tartrate [Lopressor] 25 mg PO BID #60 tab 04/27/21 Rivaroxaban [Xarelto] 20 mg PO DAILY #30 tab 04/27/21 lisinopriL [Zestril] 5 mg PO BID #60 tab 04/27/21 Allergies Allergy/AdvReac Type Severity Reaction Status Date / Time Penicillins AdvReac Nausea & Verified 05/07/21 19:58 Vomiting Review of Systems ROS Statement: Those systems with pertinent positive or pertinent negative responses have been documented in the HPI. ROS Other: All systems not noted in ROS Statement are negative. EKG Findings - EKG Comments: EKG Findings:: EKG obtained at 1916 shows sinus bradycardia with ventricular rate of 57, KS interval 162, QRS duration 82, QT 478, QTC 465. No evidence of ST elevation or depression. Past Medical History Past Medical History: Atrial Fibrillation, COPD, Hypertension History of Any Multi-Drug Resistant Organisms: None Reported Past Surgical History: Heart Catheterization, Hernia Repair Additional Past Surgical History / Comment(s): left foot, left thumb amputation, recent heart cath Past Anesthesia/Blood Transfusion Reactions: No Reported Reaction Past Psychological History: Anxiety, Bipolar Smoking Status: Former smoker Past Alcohol Use History: Rare Past Drug Use History: None Reported General Exam General appearance: alert, in no apparent distress, other (Physical well- developed, well-nourished adult male patient in no acute distress. Vital signs upon presentation are temperature 98.2F, pulse 61, respirations 18, blood pressure 215/100, pulse ox 99% on room air.) ENT exam: Present: normal exam, normal oropharynx, mucous membranes moist Respiratory exam: Present: normal lung sounds bilaterally. Absent: respiratory distress, wheezes, rales, rhonchi, stridor Cardiovascular Exam: Present: regular rate, normal rhythm, normal heart sounds. Absent: systolic murmur, diastolic murmur, rubs, gallop, clicks GI/Abdominal exam: Present: soft, normal bowel sounds. Absent: distended, tenderness, guarding, rebound, rigid Neurological exam: Present: alert, oriented X3, CN II-XII intact Psychiatric exam: Present: normal affect, normal mood Skin exam: Present: warm, dry, intact, normal color. Absent: rash Course Vital Signs 05/07/21 05/07/21 05/07/21 19:06 19:33 19:44 Temperature 98.2 F Pulse Rate 61 61 55 L Respiratory 18 20 Rate Blood Pressure 215/100 202/106 164/105 O2 Sat by Pulse 99 99 Oximetry 05/07/21 05/07/21 20:09 20:47 Temperature Pulse Rate 53 L 54 L Respiratory 18 18 Rate Blood Pressure 164/104 156/97 O2 Sat by Pulse 99 97 Oximetry Chest Pain MDM - MDM 55-year-old male patient presents to the emergency department today for evaluation of chest pain lightheadedness. Physical examination was unremarkable. Lungs are clear to auscultation with good air movement. Abdomen soft and nontender. He is afebrile. Vital signs did reveal elevated blood pressure on arrival, this did improve during visit. Heart rate was in the 50s. EKG showed sinus bradycardia with no ST elevation or depression. Labs reviewed and did reveal normal troponin. Other labs are unremarkable. Chest x-ray is negative. 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 He is instructed to return if he has further dizziness, weakness or passing out. Return parameters discussed in detail. He verbalizes understanding and agrees with this plan. He is medically cleared to return to residential. Case discussed with my attending Dr. Schrader. Disposition Clinical Impression: Chest pain Disposition: HOME SELF-CARE Condition: Good Instructions (If sedation given, give patient instructions): Chest Pain (ED) Additional Instructions: Follow-up with your primary care physician gas meter repair supervisor for further evaluation as soon as possible. Return to the emergency department for any new, worsening, or concerning symptoms. Is patient prescribed a controlled substance at d/c from ED?: No Referrals: Do Harrintgon MD [Primary Care Provider] - 1-2 days Time of Disposition: 21:18
--- NOTE | 2021-05-07 20:05 | XR ---
EXAMINATION TYPE: XR chest 2V DATE OF EXAM: 05/07/2021 COMPARISON: 04/23/2021 HISTORY: Chest pain TECHNIQUE: FINDINGS: Heart and mediastinum are normal. Lungs are clear of infiltrate. There are chest leads. Cos tophrenic angles are clear. Bony thorax is intact. There is some emphysema right upper lobe. IMPRESSION: No active cardiopulmonary disease. Pulmonary emphysema.
[2021-05-07 20:10] VITALS: RESP 18
[2021-05-07 20:11] LABS: Basophils # (A) 0.1 k/uL (0-0.2); Basophils % (A) 1 %; Eosinophils # (A) 0.2 k/uL (0-0.7); Eosinophils % (A) 3 %; HCT 46.6 % (39.0-53.0); HGB 16.4 gm/dL (13.0-17.5); Lymphocytes # (A) 2.6 k/uL (1.0-4.8); Lymphocytes % (A) 29 %; MCH 33.2 pg (25.0-35.0); MCHC 35.3 g/dL (31.0-37.0); Mean Platelet Volume 8.5; Monocytes # (A) 0.5 k/uL (0-1.0); Monocytes % (A) 5 %; Neutrophils # (A) 5.5 k/uL (1.3-7.7); Neutrophils % (A) 61 %; Platelet Count 230 k/uL (150-450); RBC 4.95 m/uL (4.30-5.90); RDW 12.8 % (11.5-15.5); WBC 9.1 k/uL (3.8-10.6)
[2021-05-07 20:29] LABS: ALT 20 U/L (4-49); AST 22 U/L (17-59); African American GFR (CKD) >90 (>60 ml/min/1.73 sqM); Albumin 4.5 g/dL (3.5-5.0); Alkaline Phosphatase 66 U/L (38-126); Anion Gap 12 mmol/L; Blood Urea Nitrogen 11 mg/dL (9-20); Calcium 9.1 mg/dL (8.4-10.2); Carbon Dioxide 25 mmol/L (22-30); Chloride 102 mmol/L (98-107); Glucose 108 mg/dL (74-99); Lipase 54 U/L (23-300); Magnesium 2.2 mg/dL (1.6-2.3); Non-African American GFR(CKD) 81 (>60 ml/min/1.73 sqM); Potassium 3.8 mmol/L (3.5-5.1); Sodium 139 mmol/L (137-145); Total Bilirubin 0.3 mg/dL (0.2-1.3); Total Protein 7.1 g/dL (6.3-8.2)
[2021-05-07 20:34] LABS: Partial Thromboplastin Time 29.5 sec (22.0-30.0); Prothrombin Time 11.1 sec (9.0-12.0)
[2021-05-07 21:48] VITALS: BP 152/102; PULSE 50
== END 2021-05-07 21:57 | disposition home or self-care (01) ==
LOC: EC 19:04
DX: R07.9 Chest pain, unspecified (principal); R42 Dizziness and giddiness; J44.9 Chronic obstructive pulmonary disease, unspecified; I10 Essential (primary) hypertension; Z88.0 Allergy status to penicillin; Z87.891 Personal history of nicotine dependence; Z79.899 Other long term (current) drug therapy
CPT/HCPCS: 36415; 71046; 80053; 83690; 83735; 84484; 85025; 85610; 85730; 93005; 99285